=== PATIENT | female | born 1990 | race Caucasian/White ===

== ENCOUNTER 2017-03-11 20:39 | Emergency (ER) | payer MEDICAID, SELFPAY ==
[2017-03-11 20:42] VITALS: BP 141/90; PULSE 97; RESP 16; TEMP 36.6; O2SAT 98; BMI 28.3
--- NOTE | 2017-03-11 22:16 | ED.VISSUMM ---
- ER Visit Summary Date of Service: 03/11/17 Chief Complaint: [Vega to left hand] History of Present Illness: The patient is a 26 F [presents the emergency department with vega to her left hand that she incurred about an hour and a half ago. Patient states that she accidentally spilled grease from a hot skillet on her left hand. Patient is right-hand dominant. Patient unsure of her last tetanus.] Physical Examination: [Left hand-there is erythema noted to the dorsum of the left index finger, middle finger, ring finger, and small finger. There is some faint blistering noted to the dorsum of the long finger and ring finger. Patient neurovascular intact distally with normal range of motion and normal sensation.] The vega are not circumferential and only involve the dorsal aspect of the fingers. Test Results: [None indicated] Emergency Department Course and Treatment: [Patient was ordered Adacel tetanus booster however patient is refusing. Patient was given Melissa for pain and the vega were dressed with bacitracin and nonadherent dressing.] Treatment Plan: [Patient to follow-up with her primary care physician 3-5 days. Patient given a prescription for Melissa for pain.] Disposition: [Discharged to home in stable condition. Patient advised to return if increasing pain, redness, swelling, or condition should worsen in any way.] Impression: [First and second-degree vega left hand involving the index, long, ring, and small fingers.] This note was generated with [employer] dictation software. It may contain incorrect words, spelling, and punctuation that were not noted in review of the chart prior to signing ED Disposition - Plan for ED Patient: Chief Complaint: Burn Referrals: Maurilio Castrejon MD [Primary Care Provider] -
--- NOTE | 2017-03-11 22:18 | ED.DEP ---
ED Disposition - Plan for ED Patient: Chief Complaint: Burn Instructions: ED Burn Thermal D 1st 2nd Dressing Prescriptions: Hydrocodone Bitart/Apap 5-325 [[place] 5/325] 1 - 2 tab PO Q4H PRN PRN #20 tab PRN Reason: Pain Referrals: Maurilio Castrejon MD [Primary Care Provider] - 3-5 Days
[2017-03-11] MEDS: HYDROcodone Bitartrate/Apap 5/325 Tablet PO ×2 (22:33→22:35)
[2017-03-11 22:39] VITALS: BP 138/82; PULSE 74; RESP 16; O2SAT 97
== END 2017-03-11 22:41 | disposition home or self-care (01) ==
PROVIDERS: Emergency Provider Emergency Medicine; Family Provider Family Medicine; PCP Family Medicine
DX: T23.232A Burn of second degree of multiple left fingers (nail), not including thumb, initial encounter (principal); X12.XXXA Contact with other hot fluids, initial encounter; Y93.9 Activity, unspecified; Y92.9 Unspecified place or not applicable; Z72.89 Other problems related to lifestyle; Z72.0 Tobacco use
CPT/HCPCS: 99283

== ENCOUNTER 2018-01-02 04:53 | Emergency (ER) | payer MEDICAID, SELFPAY ==
[2018-01-02 04:54] VITALS: BP 166/93; PULSE 128; RESP 20; TEMP 36.4; O2SAT 98; BMI 31.3
[2018-01-02 04:59] VITALS: O2SAT 98
[2018-01-02 05:02] VITALS: PULSE 120; RESP 18
[2018-01-02] MEDS: Ipratropium/Albuterol Sulfate 3 ML AMPUL.NEB INHALATION (05:05)
--- NOTE | 2018-01-02 05:30 | ED.DCSUM_ITS ---
- ER Visit Summary Date of Service: 01/02/18 Chief Complaint: Cough] History of Present Illness: The patient is a 27 F [presents to the emergency department complaint of a cough times 3 days. Patient states that the cough is nonproductive. Patient said subjective fever at home and she has had some sweats but no documented fever. Patient feels like her chest is tight at times. Patient denies recent travel or surgery. Patient is a smoker. Patient does not have a history of asthma. 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 Cranial nerves II through XII grossly intact. TMs clear. Mucous membranes moist. No adenopathy. Cardiovascular-regular rate and rhythm without murmur or ectopy Lungs-clear to auscultation, chest wall stable without crepitus or subcu emphysema Abdomen-normoactive bowel sounds, soft, nontender, no rebound or rigidity, no peritoneal signs. Extremities-intact ?4, normal range of motion, normal pulses, atraumatic] Test Results: [None indicated] Emergency Department Course and Treatment: [Patient given a DuoNeb aerosol and she did not feel that symptomatically she had any improvement in her symptoms.] Treatment Plan: [I suspect patient likely has a viral upper respiratory infection and will treat symptomatically with Tessalon Perles for her cough. Patient advised to follow-up with her primary care physician within next 3-5 days] Disposition: [Discharged home in stable condition] Impression: [Viral URI] This note was generated with [employer] dictation software. It may contain incorrect words, spelling, and punctuation that were not noted in review of the chart prior to signing ED Disposition - Plan for ED Patient: Chief Complaint: Cough Referrals: Maurilio Castrejon MD [Primary Care Provider] -
--- NOTE | 2018-01-02 05:30 | ED.DEP ---
ED Disposition - Plan for ED Patient: Chief Complaint: Cough Instructions: ED Upper Resp Infec No Abx Tx Prescriptions: Benzonatate [Tessalon Perle] 200 mg PO TID PRN PRN #20 cap PRN Reason: Cough Referrals: Maurilio Castrejon MD [Primary Care Provider] -
== END 2018-01-02 05:35 | disposition home or self-care (01) ==
LOC: ED 05:14
PROVIDERS: Emergency Provider Emergency Medicine; Family Provider Family Medicine; PCP Family Medicine
DX: J06.9 Acute upper respiratory infection, unspecified (principal); F90.9 Attention-deficit hyperactivity disorder, unspecified type; Z79.899 Other long term (current) drug therapy; F17.200 Nicotine dependence, unspecified, uncomplicated
CPT/HCPCS: 94640; 99282

== ENCOUNTER 2018-10-31 02:42 | Emergency (ER) | payer MEDICAID, SELFPAY ==
[2018-10-31 02:43] VITALS: BP 100/63; PULSE 84; RESP 20; TEMP 36; O2SAT 99; BMI 35.2
[2018-10-31 03:07] VITALS: BP 136/94; PULSE 94; RESP 22; O2SAT 100
--- NOTE | 2018-10-31 03:15 | ED.RN ---
PT STATES SHE DOES NOT WANT TO STAY FOR TESTING OR ADDITIONAL PROCEDURES. DR CASON AWARE AND IN ROOM TO DISCUSS W/PT AND HER MOTHER.
[2018-10-31] MEDS: 0.9% Normal Saline 1,000 ML 999 ML IV (03:17)
[2018-10-31] MEDS: Diphth,Pertuss(Acell),Tet Vac 0.5 ML Vial IM (03:40)
--- NOTE | 2018-10-31 03:43 | ED.VISSUMM ---
- ER Visit Summary Date of Service: 10/31/18 Chief Complaint: Syncope History of Present Illness: The patient is a 28 F presenting after syncopal episode. Patient states that she was feeling dizzy. She states she stood up and fell. She hit her teeth on the floor. 2 of her teeth fell out. EMS was called. Patient states that she has not eaten since earlier this afternoon. She states she feels dehydrated. She states she has passed out in the past when she is dehydrated. Denies possibility of . Denies chest pain or shortness of breath. Denies abdominal pain. Last tetanus is unknown. She complains of facial pain. Denies other injuries. Physical Examination: Vitals are stable. Patient is afebrile. Alert no acute distress. HEENT exam 2 right frontal incisors avulsed, 1 cm laceration inner upper lip. 1 cm superficial laceration to the chin. Abrasion under nose. Neck is nontender Lungs are clear and equal bilaterally. Heart is regular rate and rhythm. Abdomen is soft nontender nondistended. Extremities are unremarkable. Skin is warm and dry. No focal neurologic deficit. Remainder of exam is unremarkable. Emergency Department Course and Treatment: Initially attempted to reimplant the avulsed teeth. Patient is unable to tolerate this. She is offered pain medication. She declined pain medication and further attempts at reimplanting her teeth. The avulsed teeth are chipped. She understands her dentist will likely not be able to reimplant them tomorrow as this is time sensitive. Patient declines attempts to contact oral surgeon vice president mission integration and would like to leave the ED. She states she feels improved after IV fluids and wants no further treatment. Her mother is at bedside. She initially agreed to a CT scan of her head. She is now declining and would like to leave. She declines laceration repair, blood work, CT scan. Her mother is at bedside and will be staying with her tonight. She was given tetanus IM. Patient signed out AGAINST MEDICAL ADVICE. She understands risks including permanent loss of avulsed teeth. Advised signs and symptoms for which to return to the ED. Patient left prior to receiving discharge instructions. Disposition: Left AGAINST MEDICAL ADVICE Impression: Syncope, dental avulsion This note was generated with [employer] dictation software. It may contain incorrect words, spelling, and punctuation that were not noted in review of the chart prior to signing ED Disposition - Plan for ED Patient: Referrals: Maurilio Castrejon MD [Primary Care Provider] -
--- NOTE | 2018-10-31 03:48 | ED.RN ---
PT AGREED TO TESTING AFTER DISCUSSING W/DR CASON AND HER MOTHER. WHEN THIS RN ENTERED ROOM TO DRAW BLOOD, PT STATED SHE WAS NOT GOING TO WAIT ANY LONGER AND SHE WAS LEAVING. DR CASON REVIEWED RISKS W/PT AND HER MOTHER. AMA PAPERS PRINTED AND SIGNED.
== END 2018-10-31 03:52 | disposition left against medical advice (07) ==
LOC: ED 03:07
PROVIDERS: Emergency Provider Emergency Medicine; Family Provider Family Medicine; PCP Family Medicine
DX: R55 Syncope and collapse (principal); S02.5XXA Fracture of tooth (traumatic), initial encounter for closed fracture; S01.512A Laceration without foreign body of oral cavity, initial encounter; S01.81XA Laceration without foreign body of other part of head, initial encounter; S00.81XA Abrasion of other part of head, initial encounter; Z53.21 Procedure and treatment not carried out due to patient leaving prior to being seen by health care provider; W19.XXXA Unspecified fall, initial encounter; Y93.9 Activity, unspecified; Y92.9 Unspecified place or not applicable; F90.9 Attention-deficit hyperactivity disorder, unspecified type; Z79.899 Other long term (current) drug therapy; Z72.0 Tobacco use
CPT/HCPCS: 90715; 96360; 99284; J7030; J2405

== ENCOUNTER 2019-03-09 17:48 | Emergency (ER) | payer MEDICAID, SELFPAY ==
[2019-03-09 17:48] VITALS: BP 134/73; PULSE 104; RESP 16; TEMP 36.1; O2SAT 96; BMI 31.8
[2019-03-09 17:50] VITALS: BP 134/73; PULSE 104; RESP 16; TEMP 36.1; O2SAT 96
--- NOTE | 2019-03-09 17:56 | US_ITS ---
STUDY: ULTRASOUND RIGHT UPPER QUADRANT REASON FOR VISIT: Female, 28 years old. ] Right Upper quadrant abdominal pain TECHNIQUE: Ultrasound evaluation of the gallbladder was performed with real-time and static nath-scale imaging. TECHNICAL QUALITY: Adequate. COMPARISON: None. FINDINGS: Liver measures 14.7 cm. Pancreas normal. Right kidney is normal. Gallbladder: Normal distended gallbladder. The gallbladder wall measures 2.4 mm. There is a negative sonographic Lundy''s sign. There is no pericholecystic fluid. There are no gallstones. Common Bile Duct (C.B.D.): The common bile duct measures 3.2 mm. US/Gallbladder IMPRESSION: Normal right upper quadrant ultrasound Electronically Signed: Tray Shipman MD at 19:31 EST , Service support ,
--- NOTE | 2019-03-09 18:01 | ED.DCSUM_ITS ---
History of Present Illness Chief Complaint: Abd Pain Informant: Patient Onset: Weeks Context: Gradual Onset Timing: Intermittent Current Severity: Moderate Maximum Severity: Moderate Narrative: Patient is an otherwise healthy 28-year-old female with history of prior C- section who presents to the emergency department with right upper quadrant pain intermittently for the past month. He states usually eats, she will get the pain. She describes it as sharp stabbing that radiates to her back. She will get nauseated and she had 2 episodes of vomiting. She states that she also noticed that her bowel movements have been more irregular. She is unsure if she is had fever. She does state that the salad that does seem to make her pain worse. She is otherwise been in her normal state of health. Prior similar symptoms: No Recent Illness/Hospitalization: No Past Medical History - Allergies and Home Meds Allergies/Adverse Reactions: Allergies bupropion [From Wellbutrin] Allergy (Verified 03/09/19 17:51) Other ragweed pollen Allergy (Verified 03/09/19 17:51) Itching Primary Care Physician: Maurilio Castrejon MD [Primary Care Provider] - Prior records reviewed: Yes Past Medical History: None Surgical History: - - Smoking Status: Former smoker Review of Systems General: Denies: Chills, Fever, Sweats Eyes: Denies: Visual changes - bilaterally, Diplopia ENT: Denies: Rhinorrhea, Sore throat Cardiovascular: Denies: Chest pain, Palpitations Respiratory: Denies: Dyspnea, Cough, Dyspnea on exertion Gastrointestinal: Reports: Abdominal pain, Nausea. Denies: Vomiting, Diarrhea, Melena, Hematochezia Genitourinary: Denies: Dysuria, Hematuria, Frequency Musculoskeletal: Denies: Back pain, Extremity Pain Skin: Denies: Rash, Wounds Neurological: Denies: Headache, Weakness, Numbness Physical Exam Vital Signs/Narrative: Vital Signs Temp Pulse Resp BP Pulse Ox 03/09/19 17:50 97 F L 104 H 16 134/73 H 96 03/09/19 17:48 97 F L 104 H 16 134/73 H 96 Inital Vital Signs reviewed: Yes General: Well nourished, Well developed, No Acute Distress Head: Normocephalic, Atraumatic Eyes: Perrl, EOMI ENT: Moist mucous membranes, No rhinorrhea Neck: Supple, Nontender Cardiovascular: Regular rate, Regular rhythm, No murmurs Respiratory: No distress, CTA bilaterally, Chest nontender Abdomen: Soft, Nontender, Nondistended, Normal bowel sounds Back: Nontender, Normal Inspection Extremities: Nontender, No edema Skin: Normal color, No rash Neurological: Alert, Oriented x3, Cranial nerves II-XII grossly intact, Normal Strength, Normal Sensation Psychological: Normal affect, Normal Mood Diagnostic/Tx/Re-eval Clinical Impression(s) from Imaging Studies Gallbladder Ultrasound 03/09/19 17:56 IMPRESSION: Normal right upper quadrant ultrasound Electronically Signed: Tray Shipman MD at 19:31 EST , Service support , Abnormal Lab Results 03/09/19 03/09/19 03/09/19 18:17 18:17 18:50 WBC 6.6 RBC 4.78 Hgb 14.9 Hct 44.8 MCV 93.7 MCH 31.2 MCHC 33.3 RDW Std Deviation 43.6 RDW Coeff of Pablo 12.7 Plt Count 235 MPV 9.3 Immature Gran % (Auto) 0.600 Neut % (Auto) 66.6 Lymph % (Auto) 26.1 [place] % (Auto) 5.2 Eos % (Auto) 1.2 Baso % (Auto) 0.3 Absolute Neuts (auto) 4.4 Absolute Lymphs (auto) 1.71 Nucleated RBC % 0 Sodium Potassium Chloride Carbon Dioxide Anion Gap BUN Creatinine Estim Creat Clear Calc Est GFR (MDRD) Af Amer Est GFR (MDRD) Non-Af BUN/Creatinine Ratio Glucose Calcium Total Bilirubin Direct Bilirubin AST ALT Alkaline Phosphatase Total Protein Albumin Globulin Lipase Urine Color Yellow Urine Clarity Clear Urine pH 6.0 Ur Specific [place] 1.010 Urine Protein Negative Urine Glucose (UA) Normal Urine Ketones Negative Urine Occult Blood Negative Urine Nitrite Negative Urine Bilirubin Negative Urine Urobilinogen Normal Ur Leukocyte Esterase Negative Urine RBC 0 SEEN Urine WBC 0 SEEN Ur Squamous Epith Cells 0-5 SEEN Urine Bacteria 0 SEEN Urine Mucus 0 SEEN Urine Test Negative 03/09/19 18:50 WBC RBC Hgb Hct MCV MCH MCHC RDW Std Deviation RDW Coeff of [place] Plt Count MPV Immature Gran % (Auto) Neut % (Auto) Lymph % (Auto) [place] % (Auto) Eos % (Auto) Baso % (Auto) Absolute Neuts (auto) Absolute Lymphs (auto) Nucleated RBC % Sodium 138 Potassium 3.7 Chloride 108 H Carbon Dioxide 23.0 Anion Gap 7 BUN 11 Creatinine 0.95 Estim Creat Clear Calc 74.23 Est GFR (MDRD) Af Amer 91 Est GFR (MDRD) Non-Af 75 BUN/Creatinine Ratio 11.5 Glucose 89 Calcium 9.3 Total Bilirubin 0.80 Direct Bilirubin 0.13 AST 16 ALT 37 Alkaline Phosphatase 73 Total Protein 7.7 Albumin 4.4 Globulin 3.3 Lipase 89 Urine Color Urine Clarity Urine pH Ur Specific [place] Urine Protein Urine Glucose (UA) Urine Ketones Urine Occult Blood Urine Nitrite Urine Bilirubin Urine Urobilinogen Ur Leukocyte Esterase Urine RBC Urine WBC Ur Squamous Epith Cells Urine Bacteria Urine Mucus Urine Test - Medical Decision Making The patient presents with intermittent right upper quadrant pain for the past month associated with eating, nausea, and vomiting. Metabolic work-up was pursued. IV was established. Screening labs obtained were unremarkable. Urine shows no infection. The patient not . Liver functions were normal. Patient underwent ultrasound which shows a normal gallbladder. With Zofran and Toradol, her symptoms had resolved. I do suspect that there still may be a component of biliary colic or biliary dyskinesia. I am going to give her outpatient referral to surgery. She is comfortable this plan of care and will discharged home. Impression 1. Biliary colic ED Disposition - Plan for ED Patient: Instructions: BILIARY COLIC with Gallstone (Presumed) Prescriptions: Naproxen [Naprosyn] 500 mg PO BID PRN #20 tab Prescription Printed Ondansetron [Zofran Odt] 4 mg PO Q8H PRN PRN #10 tab PRN Reason: Nausea Prescription Printed Referrals: Rg Alcaraz MD [STAFF PHYSICIAN] -
[2019-03-09 18:42] LABS: Bacteria 0 SEEN /hpf (None Seen); Mucous, Urine 0 SEEN /hpf (<or=2+); Red Blood Cells-Urine 0 SEEN /hpf (0-5); White Blood Cells 0 SEEN /hpf (0-5)
[2019-03-09 18:45] LABS: Color, Urine Yellow (Yellow); Glucose, Dipstick Normal (Normal); Ketone-Dipstick Negative (Negative); Leukocyte Esterase-Dipstick Negative /ul (Negative); Nitrite-Dipstick Negative (Negative); Occult Blood-Urine Negative /ul (Negative); Protein-Dipstick Negative (Negative); Urine Bilirubin Dipstick Negative (Negative); Urine Clarity Clear (Clear); Urine Urobilinogen Normal (Normal)
[2019-03-09 18:48] LABS: Internal QC Validated? YES +Cl - CLEAR BKGD; Pregnancy, Urine Negative Negative
[2019-03-09 18:50] VITALS: TEMP 36.6
[2019-03-09 18:51] LABS: Squamous Epithelial Cells - UA 0-5 SEEN /hpf (5-10)
[2019-03-09] MEDS: 0.9% Normal Saline 1,000 ML 1000 ML IV (18:53)
[2019-03-09] MEDS: Ondansetron 4 MG/2 ML Vial IV (18:53)
[2019-03-09] MEDS: Ketorolac 30 MG/ML Syringe IV (18:53)
[2019-03-09 19:00] VITALS: TEMP 36.8
[2019-03-09 19:12] LABS: Absolute Lymphocyte Count 1.71 X10^3/uL (0.83-4.51); Absolute Neutrophil Count 4.4 X10^3/uL (2.0-7.7); Basophil# 0.02 X10^3/uL; Basophil% 0.3 % (0-1); Eosinophil# 0.08 X10^3/uL; Eosinophils% 1.2 % (0-5); Hematocrit 44.8 % (37-47); Hemoglobin 14.9 g/dL (12.0-15.0); Lymphocyte # 1.71 X10^3/ul (4.0); Lymphocyte % 26.1 % (19-41); Mean Corp Hgb Conc 33.3 g/dL (32-36); Mean Corpuscular Hgb 31.2 pg (27.0-32.0); Mean Corpuscular Volume 93.7 fL (81-99); Mean Platelet Vol. 9.3 fl (6.2-12.0); Monocyte# 0.34 X10^3/uL; Monocyte% 5.2 % (0-10); NRBC Flagged by Analyzer 0 % (0-5); Neutrophil # 4.37 X10^3/uL (2.7-7.7); Neutrophil % 66.6 % (47-70); Platelet Count 235 K/mm3 (150-450); RBC Distribution Width CV 12.7 % (11.6-14.6); RBC Distribution Width SD 43.6 fl (35.1-43.9); Red Blood Count 4.78 M/mm3 (4.2-5.4); White Blood Count 6.6 K/mm3 (4.4-11.0)
[2019-03-09 19:45] LABS: AST(SGOT) 16 U/L (15-37); Alanine Aminotransfer ALT/SGPT 37 U/L (13-56); Albumin, Serum 4.4 g/dL (3.2-5.0); Alkaline Phosphatase 73 U/L (45-117); Anion Gap 7 (5-15); BUN 11 mg/dL (7-18); BUN/Creat Ratio 11.5 RATIO (10-20); Bilirubin, Direct 0.13 mg/dL (0.00-0.30); Calcium,Total 9.3 mg/dL (8.5-10.1); Chloride 108 mmol/L (98-107); Creatinine, Serum 0.95 mg/dL (0.55-1.02); EST Glomerular Filtration Rate 75 mL/min (>60); Est Glom Filt Rate - Afr Amer 91 mL/min (>60); Estimated Creatinine Clearance 74.23 ml/min; Globulin 3.3 g/dL (2.2-4.2); Glucose 89 mg/dL (74-106); Lipase 89 U/L (73-393); Potassium 3.7 mmol/L (3.5-5.1); Protein, Total 7.7 g/dL (6.4-8.2); Sodium Level 138 mmol/L (136-145)
[2019-03-09 19:54] VITALS: BP 132/76; PULSE 78; RESP 17; O2SAT 98
== END 2019-03-09 19:55 | disposition home or self-care (01) ==
LOC: ED 18:08
PROVIDERS: Emergency Provider Emergency Medicine; PCP Family Medicine
DX: K80.50 Calculus of bile duct without cholangitis or cholecystitis without obstruction (principal); Z87.891 Personal history of nicotine dependence
CPT/HCPCS: 76705; 80048; 80076; 81001; 81025; 83690; 85025; 96361; 96374; 96375; 99285; J7030; A4216; J2405

== ENCOUNTER 2019-03-28 16:20 | Emergency (ER) | payer MEDICAID, SELFPAY ==
[2019-03-28 16:21] VITALS: BP 133/93; PULSE 97; RESP 16; TEMP 36.9; O2SAT 96; BMI 30.1
[2019-03-28] MEDS: Ondansetron ODT 4 MG Tablet PO (16:41)
--- NOTE | 2019-03-28 16:41 | RAD_ITS ---
STUDY: X-RAY CHEST REASON FOR EXAM: Female, 28 years old. COUGH TECHNIQUE: PA and lateral COMPARISON: July 21, 2016 FINDINGS: The lungs are clear and expanded. There is no demonstrated pleural abnormality. Normal size heart. Normal mediastinum and sindy. Normal visualized pulmonary arteries. Normal visualized aortic arch and descending thoracic aorta. Normal visualized thoracic spine. Normal visualized ribs, clavicles, and shoulders. There is no demonstrated abnormality of the visualized soft tissue structures of the upper abdomen. RAD/Chest PA and Lateral IMPRESSION: Normal x-ray examination of the chest. Electronically Signed: Maurilio Salvador MD at 17:12 EST , Service support ,
[2019-03-28 16:55] LABS: Bacteria 0 SEEN /hpf (None Seen); Mucous, Urine 0 SEEN /hpf (<or=2+); Red Blood Cells-Urine 0 SEEN /hpf (0-5); White Blood Cells 0 SEEN /hpf (0-5)
[2019-03-28 16:57] LABS: Color, Urine Yellow (Yellow); Glucose, Dipstick Normal (Normal); Ketone-Dipstick Negative (Negative); Leukocyte Esterase-Dipstick Negative /ul (Negative); Nitrite-Dipstick Negative (Negative); Occult Blood-Urine Negative /ul (Negative); Protein-Dipstick Negative (Negative); Specific Gravity, Urine 1.005 (1.002-1.030); Urine Bilirubin Dipstick Negative (Negative); Urine Clarity Sl. Cloudy (Clear); Urine Urobilinogen Normal (Normal)
[2019-03-28 16:59] LABS: Internal QC Validated? YES +Cl - CLEAR BKGD; Pregnancy, Urine Negative Negative
[2019-03-28 17:05] LABS: Squamous Epithelial Cells - UA 0-5 SEEN /hpf (5-10)
[2019-03-28 17:07] VITALS: RESP 18
--- NOTE | 2019-03-28 17:25 | ED.VIS.URI ---
History of Present Illness Informant: Patient, Significant Other Onset: Yesterday Context: Gradual Onset Timing: Continuous Quality: aching Location: myalgias Current Severity: Moderate Maximum Severity: Severe Worsened by: - - movement Relieved by: Tylenol Associated Symptoms: Nasal Congestion, Myalgias, Nausea, Diarrhea, Productive Cough Narrative: 28-year-old female presents with productive cough, sore throat and congestion, nausea and myalgias as well as several episodes of diarrhea with loose stool. Patient has not had a fever. No vomiting. No chest pain or shortness of breath. No hemoptysis. No headache or neck pain. She is not lightheaded or dizzy. No urinary symptoms no abdominal pain no vaginal bleeding or discharge. Her son was diagnosed with pneumonia this week and her daughter with influenza. Prior similar symptoms: Yes Recent Illness/Hospitalization: No <Alfonso Hernandez - Last Filed: 03/28/19 17:25> <Holger Gastelum - Last Filed: 03/28/19 21:50> Chief Complaint: General Illness Past Medical History Prior records reviewed: Yes Past Medical History: None Surgical History: - - Lives: With Family Smoking Status: Never smoker Alcohol: Occasional Drugs: None <Alfonso Hernandez - Last Filed: 03/28/19 17:25> <Holger Gastelum - Last Filed: 03/28/19 21:50> - Allergies and Home Meds Allergies/Adverse Reactions: Allergies bupropion [From Wellbutrin] Allergy (Verified 03/28/19 16:21) Other ragweed pollen Allergy (Verified 03/28/19 16:21) Itching Primary Care Physician: Maurilio Castrejon MD [Primary Care Provider] - 3-5 Days if not improving Review of Systems All systems negative except as indicated General: Reports: Malaise. Denies: Chills, Fever, Subjective, Sweats, Weight loss Eyes: Denies: Visual changes - bilaterally, Blurred Vision - bilaterally, Diplopia ENT: Reports: Sore throat. Denies: Bilateral ear pain, Rhinorrhea Cardiovascular: Denies: Chest pain, Palpitations, Heart racing Respiratory: Reports: Cough, Sputum. Denies: Dyspnea, Dyspnea on exertion, Orthopnea, Paroxysmal nocturnal dyspnea Gastrointestinal: Reports: Nausea. Denies: Abdominal pain, Vomiting, Diarrhea, Constipation, Melena, Hematochezia Genitourinary: Denies: Dysuria, Hematuria, Frequency Musculoskeletal: Reports: Myalgias. Denies: Arthralgias, Neck pain, Back pain, Swelling, Extremity Pain Skin: Denies: Rash, Abscess, Abrasions, Wounds Neurological: Denies: Headache, Weakness, Parasthesia Hematologic: Denies: Easy bruising, Easy bleeding <Alfonso Hernandez - Last Filed: 03/28/19 17:25> Physical Exam Vital Signs/Narrative: Vital Signs Temp Pulse Resp BP Pulse Ox 03/28/19 17:07 18 03/28/19 16:21 98.4 F 97 16 133/93 H 96 Inital Vital Signs reviewed: Yes General: Well nourished, Well developed Head: Normocephalic, Atraumatic Eyes: Perrl, EOMI Ears: Normal external canal, TM's clear. Negative for: Pain with Movement of Right Tragus, Pain with Movement of Left Tragus, Right Mastoid Tenderness, Left Mastoid Tenderness Nose: Congestion. Negative for: Erythema, Swollen Turbinates Mouth/Throat: Airway Patent, Posterior Oropharyngeal Erythema Tonsils: Right Tonsilar Erythema, Left Tonsilar Erythema. Negative for: Right Tonsilar Exudates, Left Tonsilar Exudates, Right Tonsilar Swelling, Left Tonsilar Swelling Neck: Supple, Nontender, No Lymphadenopathy, No Meningismus Cardiovascular: Regular rate, Regular rhythm, No murmurs Respiratory: No distress, CTA bilaterally, Chest nontender Abdomen: Soft, Nontender, Nondistended, Normal bowel sounds, No masses Back: Nontender, Normal Inspection. Negative for: CVA tenderness, Spinal tenderness Extremities: Nontender, No edema Skin: Normal color, No rash Neurological: Alert, Oriented x3, Normal Gait Psychological: Normal affect <Alfonso Hernandez - Last Filed: 03/28/19 17:25> Diagnostic/Tx/Re-eval Chest X-Ray - ED: 2 View, Read by ED Physician, Read by Radiologist, No Acute Disease - Medical Decision Making Patient was treated with Zofran. She declined Toradol. She has taken Tylenol about 2 hours prior to arrival. Patient's influenza testing is negative. Urinalysis is also negative as was . 2 view chest x-ray is unremarkable. Repeat evaluation, repeat abdominal exam soft and nontender and at this time the patient is tolerating by mouth. Patient was reassured that she does not have any clinical signs of dehydration that would require IV fluids. Is likely viral syndrome. She declined a prescription for Tessalon Perles but I will prescribe her Zofran. She states that she has both ibuprofen and Tylenol to take at home as needed. She was encouraged to follow-up with her primary care physician or return back to the emergency department for worsening symptoms which were discussed. <Alfonso Hernandez - Last Filed: 03/28/19 17:25> - Medical Decision Making Patient was seen by me I evaluated her, she appears well she has clear lungs bilaterally she has slight congestion. She has a normal work-up and I will discharge her in stable condition <Holger Gastelum - Last Filed: 03/28/19 21:50> ED Disposition <Alfonso Hernandez - Last Filed: 03/28/19 17:25> <Holger Gastelum - Last Filed: 03/28/19 21:50> - Plan for ED Patient: Disposition: Home or Assisted Living Diagnosis: Viral syndrome Instructions: VIRAL SYNDROME (Adult) Prescriptions: Ondansetron [Zofran Odt] 4 mg PO Q8H PRN PRN #10 tab PRN Reason: Nausea Prescription Printed Referrals: Maurilio Castrejon MD [Primary Care Provider] - 3-5 Days if not improving
[2019-03-28 17:35] VITALS: RESP 18; O2SAT 98
== END 2019-03-28 17:36 | disposition home or self-care (01) ==
PROVIDERS: Emergency Provider Physician Assistant Medical; PCP Family Medicine
DX: B34.9 Viral infection, unspecified (principal); R05 Cough; J02.9 Acute pharyngitis, unspecified; R09.81 Nasal congestion; R11.0 Nausea; M79.10 Myalgia, unspecified site; R19.7 Diarrhea, unspecified
CPT/HCPCS: 71046; 81001; 81025; 87804; 99283

== ENCOUNTER 2021-08-07 15:42 | Emergency (ER) | payer MEDICAID, SELFPAY ==
[2021-08-07 15:44] VITALS: BP 145/94; PULSE 102; RESP 18; TEMP 36.9; O2SAT 95; BMI 31.6
--- NOTE | 2021-08-07 16:35 | ED.RN ---
had pt. get in gown. pt. walks out of department without being seen. aware
== END 2021-08-07 16:34 | disposition home or self-care (01) ==
LOC: ED 16:39
PROVIDERS: PCP Internal Medicine
DX: Z53.21 Procedure and treatment not carried out due to patient leaving prior to being seen by health care provider (principal)

== ENCOUNTER 2021-11-04 21:01 | Emergency (ER) | payer MEDICAID, SELFPAY ==
[2021-11-04 21:02] VITALS: BP 144/93; PULSE 113; RESP 17; TEMP 36.6; O2SAT 96; BMI 31.8
--- NOTE | 2021-11-04 21:35 | EDS_ITS ---
HPI History of Present Illness Chief Complaint: General Illness Informant: patient Onset/Context/Timing Onset: Weeks Context: Gradual Onset Timing: Intermittent Current Severity: Mild Maximum Severity: Mild Narrative Narrative: 31-year-old female past medical history of ADHD. Prior and tonsillectomy. States that she was seen her primary care physician about 10 days ago had a negative urinalysis at that time. Said for the last 2 weeks she has had suprapubic abdominal discomfort and dysuria. Denies any vaginal bleeding or vaginal discharge. Said her last several days she has developed nausea without vomiting and loose stools. And today had she had a fever of 101.9. No history of recent urinary tract infections. Prior similar symptoms: No Recent Illness/Hospitalization: No PFSH PFSH Medical History ADHD (attention deficit hyperactivity disorder) Home Medications methylphenidate HCl 20 mg tablet 20 mg PO DAILY 11/04/21 [History Last Taken Unknown] Allergy/AdvReac Type Severity Reaction Status Date / Time bupropion [From Wellbutrin] Allergy Other Verified 11/04/21 21:05 ragweed pollen Allergy Itching Verified 11/04/21 21:05 Social History Smoking Status: Never smoker ROS ROS ED ROS Narrative Lower abdominal pain. Nausea and fever. Loose stools. No dysuria. Review of Systems ROS Unobtainable: due to encephalopathy Constitutional Constitutional ED: Reports fever(s); Denies chills Eyes Eyes: Denies blurry vision ENT ENT ED: Denies ear pain Cardiovascular Cardiovascular: Denies chest pain Respiratory/Chest Respiratory/Chest: Denies cough or dyspnea Gastrointestinal Gastrointestinal: Reports abdominal pain, diarrhea and nausea; Denies constip ation, melena or vomiting Genitourinary Genitourinary ED: Reports dysuria; Denies hematuria Musculoskeletal Musculoskeletal: Denies arthralgias Integumentary Denies abscess Neurologic Neurologic: Denies headache(s) Psychiatric Psychiatric: Denies anxiety Endocrine Endocrinology: Denies cold intolerance Hematologic/Lymphatic Hematologic/Lymphatic: Reports none Allergic/Immunologic Allergic/Immunologic ED: Denies mouth swelling or tongue swelling EXAM Physical Exam Narrative Exam Narrative: 31-year-old female no acute distress. Vital signs stable afebrile. H EENT exam unremarkable. Neck nontender. Lungs clear to auscultation. Heart regular rhythm rate about 110 no murmur. Abdomen soft nondistended normal bowel sounds no peritoneal signs. Really no significant tenderness whatsoever. Right upper and right lower quadrant are unremarkable. With no McBurney's point tenderness. No Lundy sign. Back nontender. Moving all 4 extremities. Neurologically she is awake and alert. Very benign exam. Clinically looks well. Const Vital Signs: 11/04/21 21:02 Temperature 97.9 F Temperature Source Temporal Pulse Rate 113 H Respiratory Rate 17 Blood Pressure 144/93 H Blood Pressure Mean 110 Pulse Ox 96 Oxygen Delivery Method Room Air Positive well nourished and well developed; Negative for cachectic, contractures or unkempt General Appearance ED: well developed and NAD; Negative for unkempt, cachectic, contractures, cyanotic or diaphoretic Nutritional Appearance: Negative for cachectic HEENT Reports moist mucous membranes; Denies dry mucous membranes Negative for trauma or tenderness Mouth ED: No dry mucous membranes Mouth: No dry mucous membranes Eyes PERRL and EOMs intact bilaterally General Eye ED: Negative for pale conjunctiva or scleral icterus Neck no lymphadenopathy, supple and no JVD Chest Wall inspection of chest normal and palpation of chest normal Chest: Negative for other Resp normal respiratory effort and clear to auscultation bilaterally Effort and Inspection: Negative for retractions Auscultation: Negative for rales, rhonchi or wheezes Cardio regular rhythm, S1 normal heart sound, S2 normal heart sound and no murmurs; Negative for regular rate Rate: tachycardic GI normal to inspection, nondistended, normoactive bowel sounds, non-tender, non- distended and no masses Inspection: Negative for abdominal distention Auscultation: normoactive bowel sounds Palpation: soft; Negative for tender, guarding or mass Back/Spine no CVA tenderness General Back: Negative for CVA tenderness Cervical Spine: Negative for cervical spine tenderness Thoracic Spine / Upper Back: Negative for thoracic spinal tenderness or paraspinal muscle tenderness Lumbar Spine / Lower Back: Negative for lumbar spinal tenderness Extremity normal to inspection General Extremety ED: Negative for edema or tenderness General Extremity: Negative for edema Neuro oriented x3 and CN's II-XII intact bilaterally Sensorium / Orientation: alert; Negative for orientation impaired, lethargic or stuporous Motor Exam: strength 5/5 throughout Psych mental status grossly normal Appearance: Negative for unkempt Attitude: No agitated Mood & Affect: Negative for depressed, anxious or tearful Skin no rashes or lesions noted General Skin Exam: Negative for elasticity normal Lesions: No lesion noted Rashes: No rashes noted Trauma: Negative for abrasion Wounds: Negative for wounds noted MDM MDM MDM Narrative Medical decision making narrative: 31-year-old female with lower abdominal discomfort. Benign exam. Screening labs and UA be obtained along with a test. At this time I do not think she needs any imaging obviously if the labs are significant abnormal that may change. Repeat exam patient doing well at 10:40 PM. We went over her test results is really nothing pointing in a specific diagnosis. Her urine is negative. is negative. She has discussed outpatient follow-up versus a CT of her abdomen pelvis with contrast she chose to go that route its been ordered and I am awaiting for that to be done. Her abdomen is currently benign. Patient doing well at 11:45 PM. She will be discharged home. I discussed all test results with her. Follow-up with your doctor. Lab Data Attestation: I reviewed the patient's lab results. Lab results narrative: CBC shows a white count 12.2 H&H 14 and 42. Electrolytes show a gap of 9 normal BUN and creatinine is 7 and 0.8. test negative. Urinalysis negative. No white or red cells. No nitrates. CAT scan abdomen pelvis is read by the radiologist reviewed by me shows some mild colitis. No diverticulitis. No appendicitis. No gynecologic pathology. Labs: Laboratory Results - last 24 hr 11/04/21 11/04/21 11/04/21 21:44 21:44 21:44 WBC 12.2 H RBC 4.50 Hgb 14.3 Hct 42.5 MCV 94.4 MCH 31.8 MCHC 33.6 RDW Std Deviation 43.7 RDW Coeff of Pablo 12.5 Plt Count 184 MPV 9.0 Immature Gran % (Auto) 0.500 Neut % (Auto) 88.6 H Lymph % (Auto) 7.4 L [place] % (Auto) 3.2 Eos % (Auto) 0.1 Baso % (Auto) 0.2 Absolute Neuts (auto) 10.8 H Absolute Lymphs (auto) 0.90 Nucleated RBC % 0 Sodium 138 Potassium 3.9 Chloride 105 Carbon Dioxide 24.0 Anion Gap 9 BUN 7 Creatinine 0.87 Estim Creat Clear Calc 78.93 Est GFR (MDRD) Af Amer 99 Est GFR (MDRD) Non-Af 82 BUN/Creatinine Ratio 8.1 L Glucose 107 H Calcium 9.8 Serum , Qual NEGATIVE Urine Color Urine Clarity Urine pH Ur Specific [place] Urine Protein Urine Glucose (UA) Urine Ketones Urine Occult Blood Urine Nitrite Urine Bilirubin Urine Urobilinogen Ur Leukocyte Esterase Urine RBC Urine WBC Ur Squamous Epith Cells Urine Bacteria Urine Mucus 11/04/21 21:44 WBC RBC Hgb Hct MCV MCH MCHC RDW Std Deviation RDW Coeff of [place] Plt Count MPV Immature Gran % (Auto) Neut % (Auto) Lymph % (Auto) [place] % (Auto) Eos % (Auto) Baso % (Auto) Absolute Neuts (auto) Absolute Lymphs (auto) Nucleated RBC % Sodium Potassium Chloride Carbon Dioxide Anion Gap BUN Creatinine Estim Creat Clear Calc Est GFR (MDRD) Af Amer Est GFR (MDRD) Non-Af BUN/Creatinine Ratio Glucose Calcium Serum , Qual Urine Color Straw Urine Clarity Clear Urine pH 7.0 Ur Specific [place] 1.005 Urine Protein Negative Urine Glucose (UA) Normal Urine Ketones Negative Urine Occult Blood 10 H Urine Nitrite Negative Urine Bilirubin Negative Urine Urobilinogen Normal Ur Leukocyte Esterase Negative Urine RBC 0 SEEN Urine WBC 0 SEEN Ur Squamous Epith Cells 0-5 SEEN Urine Bacteria 1+ Urine Mucus 0 SEEN Radiography Diagnostic Testing: Clinical Impression(s) from Imaging Studies Abdomen/Pelvis CT 11/04/21 22:42 IMPRESSION: 1. Mild colitis of the cecum and ascending colon. 2. No appendicitis, diverticulitis or intestinal obstruction. 3. Normal kidneys without obstructive uropathy or pyelonephritis. 4. No cholelithiasis, cholecystitis or pancreatitis. 5. Normal anteverted uterus and no ovarian cystic or solid mass lesions. Electronically Signed: Natanael Dupont MD at 23:27 EDT , Discharge Plan Triage Chief Complaint: General Illness ED Provider: Garrett Greenwood Dx/Rx/DC Orders Clinical Impression: Abdominal pain, Colitis Instructions: Abdominal Pain, ED Understanding Colitis Prescriptions: No Action methylphenidate HCl 20 mg tablet 20 mg PO DAILY Label Comments: TAKE 1 TABLET BY MOUTH TWICE DAILY FOR 30 DAYS Primary Care Provider: Mary Macdonald Referrals: Mary Macdonald MD [Primary Care Provider] - 1 Week if not improving Activity Restrictions/Additional Instructions: Your labs are unremarkable. The CAT scan showed mild inflammation of your colon that should improve. Motrin and Tylenol for pain. Follow-up with your doctor if not improving for further evaluation. Disposition Disposition: Home, Self Care
[2021-11-04 21:50] LABS: Mucous, Urine 0 SEEN /hpf (<or=2+); Red Blood Cells-Urine 0 SEEN /hpf (0-5); White Blood Cells 0 SEEN /hpf (0-5)
[2021-11-04 21:53] LABS: Absolute Neutrophil Count 10.8 X10^3/uL (2.0-7.7); Basophil# 0.03 X10^3/uL; Basophil% 0.2 % (0-1); Eosinophil# 0.01 X10^3/uL; Eosinophils% 0.1 % (0-5); Hematocrit 42.5 % (37-47); Hemoglobin 14.3 g/dL (12.0-15.0); Lymphocyte % 7.4 % (19-41); Mean Corp Hgb Conc 33.6 g/dL (32-36); Mean Corpuscular Hgb 31.8 pg (27.0-32.0); Mean Corpuscular Volume 94.4 fL (81-99); Monocyte# 0.39 X10^3/uL; Monocyte% 3.2 % (0-10); NRBC Flagged by Analyzer 0 % (0-5); Neutrophil # 10.81 X10^3/uL (2.7-7.7); Neutrophil % 88.6 % (47-70); Platelet Count 184 K/mm3 (150-450); RBC Distribution Width CV 12.5 % (11.6-14.6); RBC Distribution Width SD 43.7 fl (35.1-43.9); White Blood Count 12.2 K/mm3 (4.4-11.0)
[2021-11-04 21:57] LABS: Color, Urine Straw (Yellow); Glucose, Dipstick Normal (Normal); Ketone-Dipstick Negative (Negative); Leukocyte Esterase-Dipstick Negative /ul (Negative); Nitrite-Dipstick Negative (Negative); Occult Blood-Urine 10 /ul (Negative); Protein-Dipstick Negative (Negative); Specific Gravity, Urine 1.005 (1.002-1.030); Urine Bilirubin Dipstick Negative (Negative); Urine Clarity Clear (Clear); Urine Urobilinogen Normal (Normal)
[2021-11-04 22:12] LABS: Anion Gap 9 (5-15); BUN 7 mg/dL (7-18); BUN/Creat Ratio 8.1 RATIO (10-20); Calcium,Total 9.8 mg/dL (8.5-10.1); Chloride 105 mmol/L (98-107); Creatinine, Serum 0.87 mg/dL (0.55-1.02); EST Glomerular Filtration Rate 82 mL/min (>60); Est Glom Filt Rate - Afr Amer 99 mL/min (>60); Estimated Creatinine Clearance 78.93 ml/min; Glucose 107 mg/dL (74-106); Potassium 3.9 mmol/L (3.5-5.1); Sodium Level 138 mmol/L (136-145)
[2021-11-04 22:14] LABS: Bacteria 1+ /hpf (None Seen); Squamous Epithelial Cells - UA 0-5 SEEN /hpf (5-10)
[2021-11-04 22:15] LABS: Internal QC Validated? YES +Cl - CLEAR BKGD; Pregnancy, Serum, hCG Quali. NEGATIVE Negative
[2021-11-04] MEDS: Ondansetron 4 MG/2 ML Vial IV (22:15)
--- NOTE | 2021-11-04 22:42 | CT_ITS ---
STUDY: CT ABDOMEN AND PELVIS WITH CONTRAST ENHANCEMENT OF 2257 HOURS AND 11/04/2021 REASON FOR EXAM: 31-year-old female with lower abdominal pain. RADIATION DOSAGE (If Supplied By Facility): CTDIvol = ( 20.54 ) mGy, DLP = ( 1131.01 ) mGycm. TECHNIQUE: Transaxial images were obtained from the dome of the diaphragm to the symphysis pubis without oral contrast. 100mL of Isovue-370 was administered intravenously for this examination.. Sagittal and coronal images were reconstructed. Individualized dose optimization techniques were used for this CT. COMPARISON: 10/28/2016. FINDINGS: The visualized lung bases are unremarkable. The visualized portions of the heart are within normal limits. Normal liver. Normal gallbladder and extrahepatic biliary system. No cholelithiasis or cholecystitis. Normal spleen. No pancreatitis or pancreatic mass lesions. Normal pancreas. Normal bilateral adrenal glands. Normal kidneys without obstructive uropathy or pyelonephritis. Normal urinary bladder. Normal visualized stomach. Normal small intestine. There are findings of a mild colitis of the cecum and ascending colon. There is evidence of a diverticulitis or colonic obstruction. The rectum has normal appearance. Normal posterior appendix without appendicitis. The appendix is best visualized in sagittal images 65 through 71. Normal abdominal aorta. Normal inferior vena cava. Normal retroperitoneum. Anteverted uterus. No ovarian cystic or solid mass lesions. Normal abdominal wall. Normal osseous structures. CT/Abdomen/Pelvis W IV Cont ONLY IMPRESSION: 1. Mild colitis of the cecum and ascending colon. 2. No appendicitis, diverticulitis or intestinal obstruction. 3. Normal kidneys without obstructive uropathy or pyelonephritis. 4. No cholelithiasis, cholecystitis or pancreatitis. 5. Normal anteverted uterus and no ovarian cystic or solid mass lesions. Electronically Signed: Natanael Dupont MD at 23:27 EDT ,
[2021-11-04 23:56] VITALS: BP 132/70; PULSE 74; RESP 15; TEMP 36.4; O2SAT 98; O2SAT 99
== END 2021-11-04 23:57 | disposition home or self-care (01) ==
PROVIDERS: Emergency Provider Emergency Medicine; PCP Internal Medicine; Visit Provider Emergency Medicine
DX: K52.9 Noninfective gastroenteritis and colitis, unspecified (principal); F90.9 Attention-deficit hyperactivity disorder, unspecified type; Z79.899 Other long term (current) drug therapy
CPT/HCPCS: 74177; 80048; 81001; 84703; 85025; 96374; 99283; Q9967; A4216; J2405

== ENCOUNTER 2022-06-15 18:12 | Emergency (ER) | payer MEDICAID, SELFPAY ==
[2022-06-15 18:14] VITALS: BP 152/92; PULSE 120; RESP 18; TEMP 35.7; O2SAT 100; BMI 33.0
--- NOTE | 2022-06-15 18:26 | EDS_ITS ---
HPI History of Present Illness Chief Complaint: Upper Extremity Injury Informant: patient Associated Symptoms Associated Symptoms: Positive for Loss of Funtion; Negative for Parasthesia or Weakness Narrative Narrative: Patient states an hour ago or so she was at a batting cage and a baseball hit her in the left hand. Since then, she is having trouble moving her left small finger. [id number]. No other injuries. [facility] Medical History ADHD (attention deficit hyperactivity disorder) Home Medications methylphenidate HCl 20 mg tablet 20 mg PO DAILY 11/04/21 [History Last Taken Unknown] Allergy/AdvReac Type Severity Reaction Status Date / Time bupropion [From Wellbutrin] Allergy Other Verified 11/04/21 21:05 ragweed pollen Allergy Itching Verified 11/04/21 21:05 Social History Smoking Status: Never smoker ROS ROS ED Constitutional Constitutional ED: Denies chills or fever(s) Musculoskeletal Musculoskeletal: Reports extremity pain; Denies neck pain Integumentary Denies Abrasions, rash or wounds Neurologic Neurologic: Denies paresthesias or weakness EXAM Physical Exam Const Vital Signs: 06/15/22 18:14 Temperature 96.3 F L Temperature Source Temporal Pulse Rate 120 H Respiratory Rate 18 Blood Pressure 152/92 H Blood Pressure Mean 112 Pulse Ox 100 Oxygen Delivery Method Room Air Positive well nourished and well developed General Appearance ED: well developed and NAD Neck full ROM and supple Back/Spine normal ROM and normal to inspection Extremity normal to inspection Extremity Narrative: Left hand: Nontender fourth digit, which is somewhat painful to move but she has intact FDP, FDS, extensor and without any deformities or pain with stressing all of the collateral ligaments of the joints of that finger. On the fifth digit, she is very tender at the PIPJ and the MCPJ with no deformities. Extensor is intact. FDP is intact, but she is not able to move the FDS. It does not seem to be limited by pain. There is some mild swelling and bruising but no deformities. The metacarpal and wrist are otherwise nontender and the rest of the hand is unremarkable. Neuro oriented x3, no focal motor deficits and no sensory deficits noted Sensorium / Orientation: alert Psych mental status grossly normal and thought process normal Skin no wounds Rashes: no rashes MDM MDM MDM Narrative Medical decision making narrative: Three-view x-rays of the left hand were obtained and on my interpretation they are negative for any fracture or dislocation. My concern is that she could have disrupted the attachment of her left fifth digit flexor digitorum superficialis. The mechanism would make this difficult since she was struck ulnarly/dorsally, since she was holding a bat at the time, but that is how she is examining. Discussed this with Dr. Sherman, who is comfortable evaluating her in follow-up, I will place her in a finger splint for now. Procedures Upper Extremity Splints Upper Extremity Splint: Alum[place]am Splint Fabrication: Pre-fabricated Location: Left (Small finger; neurovascularly intact distally after placement.) Discharge Plan Triage Chief Complaint: Upper Extremity Injury ED Provider: Luis Stanford Dx/Rx/DC Orders Clinical Impression: Other injury of flexor muscle, fascia and tendon of left little finger at wrist and hand level, initial encounter Prescriptions: No Action methylphenidate HCl 20 mg tablet 20 mg PO DAILY Label Comments: TAKE 1 TABLET BY MOUTH TWICE DAILY FOR 30 DAYS Primary Care Provider: Mary Macdonald Referrals: Mary Macdonald MD [Primary Care Provider] - Flaco Sherman DO [Med Staff - Active Staff] - As soon as possible (call for appt) Disposition Disposition: Home, Self Care
--- NOTE | 2022-06-15 18:30 | RAD_ITS ---
STUDY: X-RAY - LEFT HAND REASON FOR EXAM: Female, 32 years old. injury - attn 4th, 5th fingers TECHNIQUE: 3 view(s) of the hand. COMPARISON: None. FINDINGS: Normal radiocarpal articulation. Normal distal radioulnar joint. Normal visualized carpal bones. Normal carpal articulations Normal carpometacarpal articulation of the thumb. Normal second through fifth carpometacarpal joints. Normal metacarpi. Normal metacarpophalangeal joint of the thumb. Normal interphalangeal joint of the thumb. Normal proximal and distal phalanges of the thumb. Normal metacarpophalangeal joints of the second through fifth fingers. Normal proximal and distal interphalangeal joints of the second through fifth fingers. Normal phalanges of the second through fifth fingers. The soft tissue structures are unremarkable. RAD/Hand Min 3 Views IMPRESSION: Normal x-ray examination of the hand. Electronically Signed: Tray Shipman MD at 18:43 EDT ,
--- NOTE | 2022-06-15 19:01 | ED.RN ---
SPLINT APPLIED PER DR RICHARDSON.
== END 2022-06-15 19:03 | disposition home or self-care (01) ==
PROVIDERS: Emergency Provider Emergency Medicine; PCP Internal Medicine; Visit Provider Emergency Medicine
DX: S66.107A Unspecified injury of flexor muscle, fascia and tendon of left little finger at wrist and hand level, initial encounter (principal); F90.9 Attention-deficit hyperactivity disorder, unspecified type; Z79.899 Other long term (current) drug therapy; W21.03XA Struck by baseball, initial encounter; Y92.89 Other specified places as the place of occurrence of the external cause
CPT/HCPCS: 73130; 99282

== ENCOUNTER 2023-03-31 03:13 | Emergency (ER) | payer MEDICAID, SELFPAY ==
[2023-03-31 03:15] VITALS: BP 146/100; PULSE 123; RESP 18; TEMP 37.1; O2SAT 98; BMI 36.5
--- NOTE | 2023-03-31 03:18 | RAD_ITS ---
EXAM: XR RIGHT FOOT COMPLETE, 3 OR MORE VIEWS CLINICAL INDICATION: injury TECHNIQUE: Frontal, lateral and oblique views of the right foot. COMPARISON: No relevant prior studies available. FINDINGS: BONES/JOINTS: Unremarkable. No acute fracture. No subluxation. Normal alignment. Preservation of the joint space. No sclerotic or destructive changes observed. SOFT TISSUES: Lateral soft tissue swelling at the ankle. No radiopaque foreign body. RAD/Foot min 3 Views IMPRESSION: Lateral soft tissue swelling at the ankle. No fractures identified involving the right foot. Electronically Signed: Jordon Stephen MD at 3:54 EST ,
--- NOTE | 2023-03-31 03:20 | RAD_ITS ---
EXAM: XR RIGHT ANKLE COMPLETE, 3 OR MORE VIEWS CLINICAL INDICATION: injury TECHNIQUE: Frontal, lateral and oblique views of the right ankle. COMPARISON: No relevant prior studies available. FINDINGS: BONES/JOINTS: Unremarkable. No acute fracture. No subluxation. Normal alignment. Preservation of the joint space. No sclerotic or destructive changes observed. SOFT TISSUES: Lateral soft tissue swelling. No radiopaque foreign body. RAD/Ankle min 3 Views IMPRESSION: Lateral soft tissue swelling. No fracture identified. Electronically Signed: Jordon Stephen MD at 3:50 EST ,
--- NOTE | 2023-03-31 03:32 | EDS_ITS ---
HPI History of Present Illness HPI Narrative: Patient presents with right ankle injury that occurred today. Patient states she missed a step and inverted her right ankle. Patient states her pain is worse with any weightbearing. Patient describes it as aching. Patient admits to some numbness and tingling into her foot. Patient denies any weakness. Patient denies any head injury or loss of consciousness. Patient denies any other injuries. Chief Complaint: Lower Extremity Injury Informant: patient Occured/Mechanism Mechanism/Context: Yes fall Onset/Context/Timing Onset: Today Context: Sudden Onset Timing: Continuous Quality of Pain: Aching Location: Right ankle Worsened by: Weightbearing and ambulation Relieved by: Nothing Associated Symptoms Associated Symptoms: Positive for Parasthesia; Negative for Weakness or Loss of Funtion PFSH PFS Medical History (Updated 03/31/23 @ 04:[address] Pierce Carrillo DO) ADHD (attention deficit hyperactivity disorder) Environmental and seasonal allergies Home Medications methylphenidate HCl 20 mg tablet 40 mg PO DAILY 11/04/21 [History Last Taken Unknown] Allergy/AdvReac Type Severity Reaction Status Date / Time bupropion [From Wellbutrin] Allergy Other Verified 03/31/23 03:14 ragweed pollen Allergy Itching Verified 03/31/23 03:14 Surgical History (Updated 03/31/23 @ 03:[address] Pierce Carrillo DO) Hx of section Hx of tonsillectomy Social History Smoking Status: Current every day smoker tobacco type: e-cigarettes ROS ROS ED Constitutional Constitutional ED: Denies chills or fever(s) Eyes Eyes: Denies blurry vision or change in vision ENT ENT ED: Denies rhinorrhea or sore throat Cardiovascular Cardiovascular: Denies chest pain or palpitations Respiratory/Chest Respiratory/Chest: Denies cough or dyspnea Gastrointestinal Gastrointestinal: Denies nausea or vomiting Genitourinary Genitourinary ED: Denies dysuria or hematuria Musculoskeletal Musculoskeletal: Denies back pain or neck pain Integumentary Denies abscess or rash Neurologic Neurologic: Denies headache(s) or weakness Allergic/Immunologic Allergic/Immunologic ED: Denies mouth swelling or urticaria EXAM Physical Exam Const Vital Signs: 03/31/23 03:15 Temperature 98.7 F Temperature Source Oral Pulse Rate 123 H Respiratory Rate 18 Blood Pressure 146/100 H Blood Pressure Mean 115 Pulse Ox 98 Positive well nourished, well developed and obese General Appearance ED: well developed and NAD Nutritional Appearance: obese HEENT Reports moist mucous membranes Neck full ROM and supple Extremity Extremity Narrative: There is tenderness, edema, and ecchymosis over the lateral aspect of the right ankle. There is tenderness over the lateral malleolus. There is no obvious deformity noted. Range of motion was limited in all motions of the right ankle secondary to pain. There is no tenderness over the proximal fibula. There is no tenderness over the fifth metatarsal. Pedal pulses are equal bilateral. Sensation was intact to light touch in all digits. Capillary refill was less than 2 seconds in all digits. Neuro oriented x3, CN's II-XII intact bilaterally, moves all extremities and no sen abdulkadir deficits noted Sensorium / Orientation: alert Motor Exam: strength 5/5 throughout Psych mental status grossly normal MDM MDM MDM Narrative Medical decision making narrative: Differential diagnosis includes fracture and sprain. X-rays of the right ankle will be obtained to assess for fracture. X-rays of the right foot will be obtained to assess for fracture. Radiography Diagnostic Testing: X-rays of the right ankle were obtained. There are 3 views. On my independent interpretation, there is no acute fracture. There is some soft tissue swelling noted. Radiologist also interpreted the x-rays and agrees. X-rays of the right foot were obtained. There are 3 views. On my independent interpretation, there is no acute fracture noted. There is no dislocation noted. Radiologist also interpreted the x-rays and agrees. Treatment and Re-Evaluation Narrative: Patient was advised of her findings. Patient was instructed to ice and elevate the right ankle. Patient was given an Aircast. Patient was instructed to take Tylenol or ibuprofen as needed for pain. Patient was instructed to follow-up with her primary care physician in 5 to 7 days. Patient understood and was agreeable with the plan. All questions were answered. Discharge Plan Triage Chief Complaint: Lower Extremity Injury ED Provider: Pierce Carrillo Dx/Rx/DC Orders Clinical Impression: Fall, Right ankle sprain Instructions: ED Ankle Sprain (Adult) Prescriptions: No Action methylphenidate HCl 20 mg tablet 40 mg PO DAILY Patient Comments: TAKE 1 TABLET BY MOUTH TWICE DAILY FOR 30 DAYS Primary Care Provider: Mary Macdonald Referrals: Mary Macdonald MD [Primary Care Provider] - 5-7 Days Disposition Disposition: Home, Self Care
--- OUTSIDE RECORDS SUMMARY | 2023-03-31 03:49 | XMS RPT_ITS | CCD ---
Author Name Unknown Address [address] [place] [address] Organization [facility] Care Team Providers Care Patient Observer Name Role Phone Mary Merida MD Primary Care Provider Mary Merida MD Primary Care Provider Kory Walker APRN.CNP Primary Care Provider Mary Merida MD Primary Care Provider Mary Merida MD Primary Care Provider Mary Merida MD Primary Care Provider MAXINE VELA Attending Unavailable MARY MERIDA Primary Care Unavailable ANTOINE, CAROLYN Attending Unavailable MARY MERIDA Primary Care Unavailable MARY MERIDA Referring Unavailable MARY MERIDA Attending Unavailable MARY MERIDA Primary Care Unavailable Allergies Allergy Classification Reported Allergen(s) Allergy Type Date of Onset Reaction(s) Facility (20 sources) buPROPion; Translations: [BUPROPION] Drug Allergy 6 Other: See Comments [facility] Work Phone: (20 sources) Ragweed; Translations: [RAGWEED] Allergy to substance 6 Other: See Comments [facility] Work Phone: Medications Current Medications Medication Drug Class(es) Dates Sig (Normalized) Sig (Original) etonogestrel 68 mg drug implant (20 sources) Progestin Start: 04-07-2021 End: 04-06-2024 etonogestrel (NEXPLANON) subdermal implant 68 mg Indications: Nexplanon insertion , Insertion of implantable subdermal contraceptive 1 Each by SUBDERMAL route as directed. 1 Each 0 04/07/2021 04/06/2024 Active Completed/Discontinued Medications Medication Drug Class(es) Dates Sig (Normalized) Sig (Original) bisacodyl 5 mg delayed release oral tablet (20 sources) Stimulant Laxative Start: 10-14-2020 Bisacodyl (DULCOLAX) 5 mg tab Indications: Change in bowel habits Use as directed for Miralax / Gatorade Bowel Prep Kit 4 tablet 0 10/14/2020 Active Problems Active Problems Problem Classification Problem Date Documented Da te Episodic/Chronic Alcohol-related disorders (1 source) Binge drinker; Translations: [Alcohol abuse, uncomplicated] Chronic Anxiety disorders (1 source) Mixed anxiety and depressive disorder; Translations: [Anxiety disorder, unspecified] Chronic Attention-deficit, conduct, and disruptive behavior disorders (20 sources) Attention deficit hyperactivity disorder, predominantly inattentive type; Translations: [Attention-deficit hyperactivity disorder, predominantly inattentive type] Onset: 11-09-2014 Chronic Headache; including migraine (20 sources) Chronic tension-type headache; Translations: [Chronic tension-type headache, not intractable] Onset: 08-11-2009 09-21-2015 Chronic Hemorrhoids (1 source) Hemorrhoids; Translations: [Unspecified hemorrhoids] 09-27-2022 Episodic Nephritis; nephrosis; renal sclerosis (20 sources) Recurrent hematuria; Translations: [Recurrent and persistent hematuria with unspecified morphologic changes] Onset: 11-26-2019 11-26-2019 Chronic Nonspecific chest pain (1 source) Chest discomfort; Translations: [Other chest pain] Episodic Other circulatory disease (1 source) Elevated blood-pressure reading without diagnosis of hypertension; Translations: [Elevated blood-pressure reading, without diagnosis of hypertension] Episodic Other gastrointestinal disorders (20 sources) Irritable bowel syndrome; Translations: [Mixed irritable bowel syndrome] Onset: 11-20-2017 11-20-2017 Chronic Other gastrointestinal disorders (1 source) Alteration in bowel elimination; Translations: [Change in bowel habit] Episodic Other gastrointestinal disorders (1 source) Diarrhea; Translations: [Diarrhea, unspecified] Episodic Other gastrointestinal disorders (1 source) Abdominal bloating; Translations: [Abdominal distension (gaseous)] Episodic Other gastrointestinal disorders (1 source) Heartburn; Translations: [Heartburn] Episodic Other lower respiratory disease (1 source) Dyspnea; Translations: [Shortness of breath] Episodic Other nutritional; endocrine; and metabolic disorders (1 source) Obese class I; Translations: [Obesity, unspecified] Chronic Other upper respiratory disease (20 sources) Allergic rhinitis due to pollen; Translations: [Allergic rhinitis due to pollen] Onset: 11-08-2005 09-21-2015 Chronic Other upper respiratory disease (20 sources) Seasonal allergy; Translations: [Other seasonal allergic rhinitis] Onset: 11-09-2014 09-21-2015 Chronic Substance-related disorders (20 sources) Smoker; Translations: [Nicotine dependence, unspecified, uncomplicated] Onset: 11-09-2014 02-06-2021 Chronic Urinary tract infections (1 source) Urinary tract infectious disease; Translations: [Urinary tract infection, site not specified] Episodic Past or Other Problems Problem Classification Problem Date Documented Da te Episodic/Chronic Epilepsy; convulsions (20 sources) Seizure; Translations: [Unspecified convulsions] Onset: 02-14-2015 02-14-2015 Episodic Other aftercare (20 sources) Patient encounter status; Translations: [Other steel rigger (current) drug therapy] Onset: 07-17-2017 03-21-2018 Episodic Residual codes; unclassified (20 sources) Family history of autism; Translations: [Family history of other mental and behavioral disorders] Onset: 09-25-2011 02-06-2021 Episodic Results Test Name Value Interpretation Reference Range Facil ity Vital Signs Date Time Vital Sign Value Performing Clinician Cleo zimmer 09-27-2022 11:38-0400 Body weight 87.54 kg Carolyn Older RN CHILD.ELI Work Phone: [facility] 09-27-2022 11:38-0400 Diastolic blood pressure 78 mm[Hg] Carolyn Older RN CHILD.ELI Work Phone: [facility] 09-27-2022 11:38-0400 Heart rate 92 /min Carolyn Older RN CHILD.SPECIAL TECHNICAL OPERATIONS OFFICER Work Phone: [facility] 09-27-2022 11:38-0400 Respiratory rate 16 /min Carolyn Older RN CHILD.ELI Work Phone: [facility] 09-27-2022 11:38-0400 SaO2% (BldA) [Mass fraction] 98 % Carolyn Older RN CHILD.ELI Work Phone: [facility] 09-27-2022 11:38-0400 Systolic blood pressure 122 mm[Hg] Carolyn Denney APRN.CNP Work Phone: [facility] 05-10-2022 09:34-0400 Body weight 85.28 kg Mary Merida MD Work Phone: [facility] 05-10-2022 09:34-0400 Diastolic blood pressure 82 mm[Hg] Mary Merida MD Work Phone: [facility] 05-10-2022 09:34-0400 Heart rate 84 /min Mary Merida MD Work Phone: [facility] 05-10-2022 09:34-0400 Respiratory rate 16 /min Mary Merida MD Work Phone: [facility] 05-10-2022 09:34-0400 SaO2% (BldA) [Mass fraction] 98 % Mary Merida MD Work Phone: [facility] 05-10-2022 09:34-0400 Systolic blood pressure 110 mm[Hg] Mary Merida MD Work Phone: [facility] 12-21-2021 11:41-0500 Body temperature 97.3 [degF] Mary Merida MD Work Phone: [facility] 12-21-2021 11:41-0500 Body weight 83.46 kg Mary Merida MD Work Phone: [facility] 12-21-2021 11:41-0500 Diastolic blood pressure 76 mm[Hg] Mary Merida MD Work Phone: [facility] 12-21-2021 11:41-0500 Heart rate 103 /min Mary Merida MD Work Phone: [facility] 12-21-2021 11:41-0500 Respiratory rate 16 /min Mary Merida MD Work Phone: [facility] 12-21-2021 11:41-0500 SaO2% (BldA) [Mass fraction] 98 % Mary Merida MD Work Phone: [facility] 12-21-2021 11:41-0500 Systolic blood pressure 116 mm[Hg] Mary Merida MD Work Phone: [facility] 10-25-2021 16:37-0400 Diastolic blood pressure 84 mm[Hg] Mary Merida MD Work Phone: [facility] 10-25-2021 16:37-0400 Systolic blood pressure 122 mm[Hg] Mary Merida MD Work Phone: [facility] 10-25-2021 16:01-0400 Body weight 83.01 kg Mary Merida MD Work Phone: [facility] 10-25-2021 16:01-0400 Heart rate 104 /min Mary Merida MD Work Phone: [facility] 10-25-2021 16:01-0400 Respiratory rate 16 /min Mary Merida MD Work Phone: [facility] 10-25-2021 16:01-0400 SaO2% (BldA) [Mass fraction] 96 % Mary Merida MD Work Phone: [facility] 08-07-2021 15:15-0400 Body temperature 98.8 [degF] Sera Praisler-Wood RN CHILD.SPECIAL TECHNICAL OPERATIONS OFFICER Work Phone: [facility] 08-07-2021 15:15-0400 Body weight 81.28 kg Sera Praisler-Wood RN CHILD.SPECIAL TECHNICAL OPERATIONS OFFICER Work Phone: [facility] 08-07-2021 15:15-0400 Diastolic blood pressure 92 mm[Hg] Sera Praisler-Wood RN CHILD.SPECIAL TECHNICAL OPERATIONS OFFICER Work Phone: [facility] 08-07-2021 15:15-0400 Heart rate 113 /min Sera Praisler-Wood RN CHILD.SPECIAL TECHNICAL OPERATIONS OFFICER Work Phone: [facility] 08-07-2021 15:15-0400 Respiratory rate 20 /min Sera Praisler-Wood RN CHILD.SPECIAL TECHNICAL OPERATIONS OFFICER Work Phone: [facility] 08-07-2021 15:15-0400 SaO2% (BldA) [Mass fraction] 98 % Sera Praisler-Wood RN CHILD.SPECIAL TECHNICAL OPERATIONS OFFICER Work Phone: [facility] 08-07-2021 15:15-0400 Systolic blood pressure 152 mm[Hg] Sera Rondon APRN.SPECIAL TECHNICAL OPERATIONS OFFICER Work Phone: [facility] 07-19-2021 15:52-0400 Body height 160 cm Mary Merida MD Work Phone: [facility] 07-19-2021 15:52-0400 Body temperature 97.81 [degF] Mary Merida MD Work Phone: [facility] 07-19-2021 15:52-0400 Body weight 81.19 kg Mary Merida MD Work Phone: [facility] 07-19-2021 15:52-0400 Diastolic blood pressure 70 mm[Hg] Mary Merida MD Work Phone: [facility] 07-19-2021 15:52-0400 Heart rate 107 /min Mary Merida MD Work Phone: [facility] 07-19-2021 15:52-0400 Respiratory rate 12 /min Mary Merida MD Work Phone: [facility] 07-19-2021 15:52-0400 SaO2% (BldA) [Mass fraction] 95 % Mary Merida MD Work Phone: [facility] 07-19-2021 15:52-0400 Systolic blood pressure 122 mm[Hg] Mary Merida MD Work Phone: [facility] Encounters Encounter Date Encounter Type Care Provider Facility Start: 03-25-2023 E-mail encounter fro m caregiver Nurse [facility] Work Phone: [facility] Start: 03-25-2023 Patient encounter procedure Nu rse [facility] Work Phone: Allergy Procedures Date Procedure Procedure Detail Performing Clinician Start: 10-25-2021 Urnls dip stick/tabl et rgnt auto w/o microscopy Mary Merida MD Work Phone: Start: 08-28-2016 Adult depression screening assessment Carolyn Older RN CHILD.[facility] Work Phone: Plan of Treatment Date Care Activity Detail Author Start: 10-31-2028 Urine microalbumin profile [facility] Start: 03-23-2026 PAP TESTING PAP TESTING [facility] Start: 03-23-2026 Screening for malign ant neoplasm of cervix Pap Testing [facility] Start: 03-07-2025 HPV TESTING HPV TESTING [facility] Start: 03-07-2025 Screening for malign ant neoplasm of cervix HPV Testing [facility] Start: 03-23-2024 PAP TESTING PAP TESTING [facility] Start: 02-26-2024 Covid-19 Vaccine (#1) Covid-19 Vacci ne (#1) [facility] Immunizations Immunization Date Immunization Notes Care Provider Aliya young 11-19-2018 influenza, injectabl e, quadrivalent, preservative free Carolyn Older RN CHILD.[facility] Work Phone: [facility] Work Phone: 11-19-2018 influenza virus vaccine, unspecified formulation Nuha Angi RN CHILD.[facility] Work Phone: [facility] 10-31-2018 tetanus toxoid, redu jaida diphtheria toxoid, and acellular pertussis vaccine, adsorbed Carolyn Older RN CHILD.[facility] Work Phone: [facility] Work Phone: 05-16-2018 tetanus toxoid, redu jaida diphtheria toxoid, and acellular pertussis vaccine, adsorbed Carolyn Older RN CHILD.[facility] Work Phone: [facility] 12-18-2016 influenza, injectabl e, quadrivalent, contains preservative Carolyn Older RN CHILD.[facility] Work Phone: [facility] 11-09-2014 influenza, injectabl e, quadrivalent, contains preservative Carolyn Older RN CHILD.SPECIAL TECHNICAL OPERATIONS OFFICER Work Phone: [facility] Work Phone: 11-09-2014 influenza, seasonal, injectable Carolyn Older RN CHILD.SPECIAL TECHNICAL OPERATIONS OFFICER Work Phone: [facility] Work Phone: 11-27-2011 influenza virus vaccine, unspecified formulation Carolyn Older RN CHILD.[facility] Work Phone: [facility] Work Phone: 11-27-2011 tetanus toxoid, redu jaida diphtheria toxoid, and acellular pertussis vaccine, adsorbed Carolyn Older RN CHILD.[facility] Work Phone: [facility] Work Phone: 11-25-2007 human papilloma viru s vaccine, quadrivalent Carolyn Older RN CHILD.[facility] Work Phone: [facility] Work Phone: 07-23-2007 human papilloma viru s vaccine, quadrivalent Carolyn Older RN CHILD.[facility] Work Phone: [facility] Work Phone: 05-23-2007 human papilloma viru s vaccine, quadrivalent Carolyn Older RN CHILD.[facility] Work Phone: [facility] 05-23-2007 Meningococcal, MCV4, unspecified conjugate formulation(groups A, C, Y and W-135) Carolyn Older RN CHILD.[facility] Work Phone: [facility] 10-02-2005 tetanus and diphther ia toxoids, adsorbed, preservative free, for adult use (2 Lf of tetanus toxoid and 2 Lf of diphtheria toxoid) Carolyn Older RN CHILD.[facility] Work Phone: [facility] Work Phone: 06-17-2003 hepatitis B vaccine, pediatric or pediatric/adolescent dosage Carolyn Older RN CHILD.SPECIAL TECHNICAL OPERATIONS OFFICER Work Phone: [facility] Work Phone: 01-23-2003 hepatitis B vaccine, pediatric or pediatric/adolescent dosage Carolyn Older RN CHILD.[facility] Work Phone: [facility] Work Phone: 12-09-2002 hepatitis B vaccine, pediatric or pediatric/adolescent dosage Carolyn Older RN CHILD.[facility] Work Phone: [facility] Work Phone: 12-09-2002 measles, mumps and rubella virus vaccine Carolyn Older RN CHILD.[facility] Work Phone: [facility] Work Phone: 05-11-1997 diphtheria, tetanus toxoids and acellular pertussis vaccine, unspecified formulation Carolyn Older RN CHILD.[facility] Work Phone: [facility] Work Phone: 11-09-1993 diphtheria, tetanus toxoids and acellular pertussis vaccine Carolyn Older RN CHILD.[facility] Work Phone: [facility] Work Phone: 11-09-1993 haemophilus influenz ae type b vaccine, HbOC conjugate Carolyn Older RN CHILD.[facility] Work Phone: [facility] Work Phone: 11-09-1993 trivalent poliovirus vaccine, live, oral Carolyn Older RN CHILD.[facility] Work Phone: [facility] Work Phone: 01-12-1993 diphtheria, tetanus toxoids and acellular pertussis vaccine Carolyn Older RN CHILD.[facility] Work Phone: [facility] Work Phone: 01-12-1993 haemophilus influenz ae type b vaccine, HbOC conjugate Carolyn Older RN CHILD.[facility] Work Phone: [facility] Work Phone: 01-12-1993 trivalent poliovirus vaccine, live, oral Carolyn Older RN CHILD.[facility] Work Phone: [facility] Work Phone: 1992 diphtheria, tetanus toxoids and acellular pertussis vaccine Carolyn Older RN CHILD.[facility] Work Phone: [facility] Work Phone: 1992 haemophilus influenz ae type b vaccine, HbOC conjugate Carolyn Older RN CHILD.[facility] Work Phone: [facility] Work Phone: 1992 diphtheria, tetanus toxoids and acellular pertussis vaccine Carolyn Older RN CHILD.[facility] Work Phone: [facility] Work Phone: 1992 haemophilus influenz ae type b vaccine, HbOC conjugate Carolyn Antoine RN CHILD.SPECIAL TECHNICAL OPERATIONS OFFICER Work Phone: [facility] Work Phone: 1992 trivalent poliovirus vaccine, live, oral Carolyndebora Denney RN CHILD.SPECIAL TECHNICAL OPERATIONS OFFICER Work Phone: [facility] Work Phone: Payers Date Payer Category Payer Medicaid [id number] 2014 Medicaid [facility] MEDIC AID [facility] MEDICAID [id number] 2014-Present [phone] [address] [place] [address] Medicaid [id number] 2014 Medicaid [id number] Social History Date Type Detail Facility Start: 03-01-2020 End: 10-25-2021 Tobacco smoking status NHIS Ex-smoker [facility] History of tobacco use Cigarette Smoker [facility] Start: 03-01-2020 End: 10-25-2021 Tobacco use and exposure Smokeless tobacco non-user [facility] Start: 04-12-2021 End: 02-25-2023 Alcohol intake Current drinker of alcohol (finding) [facility] Start: 11-17-2019 History SDOH Alcohol Comment occasionally [facility] Start: 11-17-2019 End: 10-25-2021 Tobacco Comment smokes a pack of cigarettes a month [facility] Start: 1990 Sex Assigned At Not on file [facility] Start: 03-13-2021 End: 12-21-2021 Exposure to SARS-CoV-2 (event) Not sure [facility] History of tobacco use Current smoker [facility] Start: 10-27-2021 End: 11-06-2021 Exposure to SARS-CoV-2 (event) Unable to assess [facility] Start: 12-21-2021 End: 07-10-2022 History of Social function [facility] Work Phone: Start: 12-21-2021 End: 07-10-2022 Tobacco use panel [facility] Work Phone: Adult Depression Screening Assessment 0 [facility] Work Phone: Clinical Notes 10-30-2011 to 03-25-2023 Telephone Encounter - Carolyn Denney APRN.CNP - 03/25/2023 12:55 PM ESTTelephone Encounter - Lisa Membreno LPN - 03/25/2023 8:46 AM ESTTelephone Encounter - Deonna Medellin LPN - 01/21/2023 2:54 PM EST Note Date & Type Note Facility 03-25-2023 Miscellaneous Notes PDMP website checked and validated. All prescriptions have been APPROPRIATELY filled. No suspicious activity was identified. 03/25/2023 by Carolyn Denney APRN.ELI Patient has been identified by name and date of : No Patient phones for refill(s): Requested Prescriptions Pending Prescriptions Disp Refills methylphenidate (RITALIN) 20 mg tablet 60 tablet 0 Sig: Take 1 tablet by mouth two times a day for 30 days. Date of last office visit in primary care: 02/25/2023 Date of next office visit in primary care: 08/26/2023 Please advise. Thank you. Lisa Membreno LPN. documented in this encounter [facility] 02-25-2023 Note HNO ID: [id number] Author: MAXINE VELA APRN.CNP Service: ? Author Type: Nurse Practitioner Type: Progress Notes Filed: 02/25/2023 11:39 Note Text: CC: Patient presents with: Medication Follow-up: Allergy medication HPI Betzy Yip is a 32 year old female who presents today for above. Current Treatment: Ritalin 20 mg BID Feels treatment is working well: Yes. Weight loss: No Tremor: No Mood disorder: No Chest pain/Palpitations: No Allergy symptoms have been getting worse. Reports nasal congestion, runny nose and itchy/watery eyes. She is allergic to dogs but does not want to get rid of her dog. Has tried claritin, Zyrtec and Alvina without much relief. Review of Systems See HPI PAST MEDICAL HISTORY Diagnosis Date Allergic rhinitis, cause unspecified 1999 Allergic rhinitis Attention deficit hyperactivity disorder (ADHD), predominantly inattentive type 11/09/2014 Chronic tension headaches 08/11/2009 Seasonal allergies 11/09/2014 Seizure (HCC) 02/14/2015 Smoker 11/09/2014 started at age 22 and smoke 2 a day. PAST SURGICAL HISTORY Procedure Laterality Date DELIVERY ONLY TONSILLECTOMY PRIMARY/SECONDARY Tonsillectomy ALLERGIES Wellbutrin [Bupropion] and Ragweed MEDICATIONS methylphenidate (RITALIN) 20 mg tablet Take 1 tablet by mouth two times a day for 30 days. hydrocortisone (ANUSOL-HC) 25 mg suppository 1 Suppository by RECTAL route two times a day as needed (hemorrhoids/rectal pain). omeprazole (PRILOSEC) 20 mg capsule Take 1 capsule by mouth daily before breakfast. 1/2 hr before meal. etonogestrel (NEXPLANON) subdermal implant 68 mg 1 Each by SUBDERMAL route as directed. ondansetron orally disintegrating (ZOFRAN ODT) 4 mg disintegrating tablet Take 1 tablet by mouth every 6 hours as needed for nausea/vomiting. (Patient not taking: Reported on 05/10/2022) Etonogestrel-Ethinyl Estradiol (NUVARING) 0.12-0.015 mg/24 hr vaginal ring Use 1 Each vaginally as directed. Use as directed (Patient not taking: No sig reported) polyethylene glycol 3350 (MIRALAX, GLYCOLAX) 17 gram/dose powder Use as directed for Miralax / Gatorade Bowel Prep Kit (Patient not taking: Reported on 05/10/2022) Bisacodyl (DULCOLAX) 5 mg tab Use as directed for Miralax / Gatorade Bowel Prep Kit (Patient not taking: No sig reported) etonogestrel subdermal implant 68 mg (NEXPLANON) 1 Each by SUBDERMAL route one time only for 1 dose. FAMILY HISTORY Problem Relation Age of Onset Headache Mother Psychiatry Mother Thyroid Mother Allergies Father Alcohol/Drug Maternal Grandmother Arthritis Maternal Grandmother Psychiatry Maternal Grandfather Diabetes Paternal Grandmother Cancer Paternal Grandmother lung Coronary Artery Disease Paternal Grandfather Heart Paternal Grandfather Ischemic Heart Disease Paternal Grandfather Asthma Son Social History Tobacco Use Smoking status: Former Years: 1 Types: Cigarettes Smokeless tobacco: Never Tobacco comments: smokes a pack of cigarettes a month Vaping Use Vaping Use: current everyday user Substances: Nicotine Devices: Pre-filled or refillable cartridge Substance Use Topics Alcohol use: Yes Comment: occasionally Drug use: No BP 136/88 Pulse 115 Resp 16 Wt 91.6 kg (202 lb) LMP 03/20/2021 (Exact Date) SpO2 99% BMI 35.78 kg/m? Physical Exam Vitals reviewed. Constitutional: Appearance: Normal appearance. Neurological: Mental Status: She is alert. Psychiatric: Attention and Perception: Attention normal. Mood and Affect: Mood and affect normal. Speech: Speech normal. Behavior: Behavior normal. Thought Content: Thought content normal. Judgment: Judgment normal. Health maintenance reviewed with patient: Covid-19 Vaccine(1) Never done Influenza Vaccine(1) due on 10/12/2022 Depression Assessment due on 02/11/2023 HPV Testing due on 03/07/2025 Pap Testing due on 03/23/2026 DTaP,Tdap,Td Vaccine(9 - Td or Tdap) due on 10/31/2028 HPV Vaccine Completed Hepatitis B Vaccine Addressed Hepatitis C Screening Discontinued HIV Screening Discontinued DATA REVIEWED: Most recent labs Depression Screening PHQ-2 Score 02/25/2023 0 Depression screening tool completed and reviewed. Based on score and interview, patient is not at risk for depression. Screening tool discussed with patient, and I recommended no further intervention at this time. ASSESSMENT/PLAN: 1. Attention deficit hyperactivity disorder (ADHD), predominantly inattentive type - ICD9: 314.00, ICD10: F90.0 (primary diagnosis) Continue current medications as per orders, side effects discussed and patient education given and discussed Aware of risks associated with controlled substance use. No history of misuse/abuse/diversion of meds Controlled substance agreement up to date: Yes Urine tox screen up to date: Yes PDMP website checked and validated. All prescriptions have been APPROPRIATELY filled. No (more content not included)... [facility] 01-21-2023 Miscellaneous Notes Last office visit: 09/27/22 Next appointment scheduled: No future appointments scheduled at this time. Patient phones requesting refills as follows: Requested Prescriptions Pending Prescriptions Disp Refills hydrocortisone (ANUSOL-HC) 25 mg suppository 15 Suppository 1 Si Suppository by RECTAL route two times a day as needed (hemorrhoids/rectal pain). Please review and advise. Deonna Medellin LPN documented in this encounter [facility] 01-21-2023 Miscellaneous Notes Last office visit: 09/27/22 Next appointment scheduled: No future appointments scheduled at this time. Patient phones requesting refills as follows: Requested Prescriptions Pending Prescriptions Disp Refills methylphenidate (RITALIN) 20 mg tablet 60 tablet 0 Sig: Take 1 tablet by mouth two times a day for 30 days. Please review and advise. Deonna Medellin LPN documented in this encounter [facility] 12-24-2022 Miscellaneous Notes Patient has been identified by name and date of : Yes Patient phones for refill(s): Requested Prescriptions Pending Prescriptions Disp Refills methylphenidate (RITALIN) 20 mg tablet 60 tablet 0 Sig: Take 1 tablet by mouth two times a day for 30 days. Date of last office visit in primary care: 09/27/2022 Date of next office visit in primary care: 12/27/2022 Last 2 Encounter Wt Readings: Date: Wt: 09/27/2022 87.5 kg (193 lb) 05/10/2022 85.3 kg (188 lb) Previous labs/tests for medication: Not applicable Please advise. Thank you. Annia Menon LPN. documented in this encounter [facility] 11-20-2022 Miscellaneous Notes last fill 10/26 Rx sent Patient has been identified by name and date of : Yes Patient phones for refill(s): Requested Prescriptions Pending Prescriptions Disp Refills methylphenidate (RITALIN) 20 mg tablet 60 tablet 0 Sig: Take 1 tablet by mouth two times a day for 30 days. Date of last office visit in primary care:10/21/2022 Date of next office visit in primary care: 12/27/2022 Last 2 Encounter Wt Readings: Date: Wt: 09/27/2022 87.5 kg (193 lb) 05/10/2022 85.3 kg (188 lb) Previous labs/tests for medication: Not applicable Please advise. Thank you. Annia Menon LPN. documented in this encounter [facility] 10-22-2022 Miscellaneous Notes PDMP website checked and validated. All prescriptions have been APPROPRIATELY filled. No suspicious activity was identified. 10/22/2022 by Nuha Whtiley APRN.CNP Patient has been identified by name and date of : Yes Patient phones for refill(s): Requested Prescriptions Pending Prescriptions Disp Refills methylphenidate (RITALIN) 20 mg tablet 60 tablet 0 Sig: Take 1 tablet by mouth twice daily for 30 days. Date of last office visit in primary care: 09/27/2022 Annual: 12/27/2022 Last 2 Encounter Wt Readings: Date: Wt: 09/27/2022 87.5 kg (193 lb) 05/10/2022 85.3 kg (188 lb) Previous labs/tests for medication: Not applicable Please advise. Thank you. Annia Menon LPN documented in this encounter [facility] 09-27-2022 Note HNO ID: [id number] Author: Carolyn Denney APRN.CNP Service: ? Author Type: Nurse Practitioner Type: Progress Notes Filed: 09/27/2022 3:53 PM Note Text: CC: Patient presents with: Recheck: Medication follow up HPI Betzy Yip is a 32 year old female who presents today for routine ADHD follow up. ADHD: Has been on this dose of ritalin for the past year. Feels mostly controlled with current dose. States she might need more of an extended release or dose change but this is not severe and would prefer to discuss changes with her PCP when she is back in office. GERD: Takes omeprazole only when she know she is going to eat spicy foods or right after spicy foods Denies heartburn, abdominal pain, nausea, or difficulty swallowing. Has had hemorrhoids for years with pain. She has noticed an increase in pain and size of her hemorrhoids. Will have episodes of pain and irritation every other month when in the past it would be only a few times a year. Also now with intermittent moments of bright red blood with stools. Last BM was yesterday and reports as normal without any blood . Once a week she will have a large hard stool difficult to pass but all other days are soft formed and normal. Has tried over the counter hemorrhoid creams without improvement. Currently without any pain or inflammation but wants to evaluate having this removed and have something else available when needed. REVIEW OF SYSTEMS General: no fevers, no chills, no night sweats, no recurrent infections, no change in appetite, no change in energy, and no significant changes in weight Respiratory: no cough, no wheezing, no shortness of breath, no hemoptysis Cardiovascular: no chest pain, no chest pressure, no palpitations, and no swelling GI: No nausea, vomiting, or diarrhea Neurologic: No headache, weakness, numbness, tingling, dizziness, syncope. PAST MEDICAL HISTORY Diagnosis Date Allergic rhinitis, cause unspecified 1999 Allergic rhinitis Attention deficit hyperactivity disorder (ADHD), predominantly inattentive type 11/09/2014 Chronic tension headaches 08/11/2009 Seasonal allergies 11/09/2014 Seizure (HCC) 02/14/2015 Smoker 11/09/2014 started at age 22 and smoke 2 a day. PAST SURGICAL HISTORY Procedure Laterality Date DELIVERY ONLY TONSILLECTOMY PRIMARY/SECONDARY Tonsillectomy ALLERGIES Wellbutrin [Bupropion] and Ragweed MEDICATIONS methylphenidate (RITALIN) 20 mg tablet Take 1 tablet by mouth twice daily for 30 days. Do not start before September 24, 2022. omeprazole (PRILOSEC) 20 mg capsule Take 1 capsule by mouth daily before breakfast. 1/2 hr before meal. ondansetron orally disintegrating (ZOFRAN ODT) 4 mg disintegrating tablet Take 1 tablet by mouth every 6 hours as needed for nausea/vomiting. (Patient not taking: Reported on 05/10/2022) etonogestrel (NEXPLANON) subdermal implant 68 mg 1 Each by SUBDERMAL route as directed. Etonogestrel-Ethinyl Estradiol (NUVARING) 0.12-0.015 mg/24 hr vaginal ring Use 1 Each vaginally as directed. Use as directed (Patient not taking: No sig reported) polyethylene glycol 3350 (MIRALAX, GLYCOLAX) 17 gram/dose powder Use as directed for Miralax / Gatorade Bowel Prep Kit (Patient not taking: Reported on 05/10/2022) Bisacodyl (DULCOLAX) 5 mg tab Use as directed for Miralax / Gatorade Bowel Prep Kit (Patient not taking: No sig reported) etonogestrel subdermal implant 68 mg (NEXPLANON) 1 Each by SUBDERMAL route one time only for 1 dose. FAMILY HISTORY Problem Relation Age of Onset Headache Mother Psychiatry Mother Thyroid Mother Allergies Father Alcohol/Drug Maternal Grandmother Arthritis Maternal Grandmother Psychiatry Maternal Grandfather Diabetes Paternal Grandmother Cancer Paternal Grandmother lung Coronary Artery Disease Paternal Grandfather Heart Paternal Grandfather Ischemic Heart Disease Paternal Grandfather Asthma Son Social History Tobacco Use Smoking status: Former Years: 1 Types: Cigarettes Smokeless tobacco: Never Tobacco comments: smokes a pack of cigarettes a month Vaping Use Vaping Use: current everyday user Substances: Nicotine Devices: Pre-filled or refillable cartridge Substance Use Topics Alcohol use: Yes Comment: occasionally Drug use: No PHYSICAL EXAM BP 122/78 Pulse 92 Resp 16 Wt 87.5 kg (193 lb) LMP 03/20/2021 (Exact Date) SpO2 98% BMI 34.19 kg/m? General Appearance: well appearing, in no acute distress, alert Pysch: mood and affect broad and appropriate Skin: Skin color, texture, turgor normal for age; Eyes: conjunctiva pink and moist, no icterus, sclera white, non-injected Lungs: Lungs clear to auscultation. No wheezing, rhonchi, rales. Heart: RRR without murmur, gallop, or rubs. No ectopy Health maintenance reviewed with patient: COVID-19 VACCINE(1) due on 10/25/2022 INFLUENZA(1) due on 10/12/2022 HPV TESTING due on 03/07/2025 PAP TESTING due on (more content not included)... [facility] 09-27-2022 History of Presen t illness Narrative CC: Patient presents with: Recheck: Medication follow up HPI Betzy Yip is a 32 year old female who presents today for routine ADHD follow up. ADHD: Has been on this dose of ritalin for the past year. Feels mostly controlled with current dose. States she might need more of an extended release or dose change but this is not severe and would prefer to discuss changes with her PCP when she is back in office. GERD: Takes omeprazole only when she know she is going to eat spicy foods or right after spicy foods Denies heartburn, abdominal pain, nausea, or difficulty swallowing. Has had hemorrhoids for years with pain. She has noticed an increase in pain and size of her hemorrhoids. Will have episodes of pain and irritation every other month when in the past it would be only a few times a year. Also now with intermittent moments of bright red blood with stools. Last BM was yesterday and reports as normal without any blood . Once a week she will have a large hard stool difficult to pass but all other days are soft formed and normal. Has tried over the counter hemorrhoid creams without improvement. Currently without any pain or inflammation but wants to evaluate having this removed and have something else available when needed. REVIEW OF SYSTEMS General: no fevers, no chills, no night sweats, no recurrent infections, no change in appetite, no change in energy, and no significant changes in weight Respiratory: no cough, no wheezing, no shortness of breath, no hemoptysis Cardiovascular: no chest pain, no chest pressure, no palpitations, and no swelling GI: No nausea, vomiting, or diarrhea Neurologic: No headache, weakness, numbness, tingling, dizziness, syncope. PAST MEDICAL HISTORY Diagnosis Date Allergic rhinitis, cause unspecified 1999 Allergic rhinitis Attention deficit hyperactivity disorder (ADHD), predominantly inattentive type 11/09/2014 Chronic tension headaches 08/11/2009 Seasonal allergies 11/09/2014 Seizure (HCC) 02/14/2015 Smoker 11/09/2014 started at age 22 and smoke 2 a day. PAST SURGICAL HISTORY Procedure Laterality Date DELIVERY ONLY TONSILLECTOMY PRIMARY/SECONDARY <AGE 14 2006 Tonsillectomy ALLERGIES Wellbutrin [Bupropion] and Ragweed MEDICATIONS methylphenidate (RITALIN) 20 mg tablet Take 1 tablet by mouth twice daily for 30 days. Do not start before September 24, 2022. omeprazole (PRILOSEC) 20 mg capsule Take 1 capsule by mouth daily before breakfast. 1/2 hr before meal. ondansetron orally disintegrating (ZOFRAN ODT) 4 mg disintegrating tablet Take 1 tablet by mouth every 6 hours as needed for nausea/vomiting. (Patient not taking: Reported on 05/10/2022) etonogestrel (NEXPLANON) subdermal implant 68 mg 1 Each by SUBDERMAL route as directed. Etonogestrel-Ethinyl Estradiol (NUVARING) 0.12-0.015 mg/24 hr vaginal ring Use 1 Each vaginally as directed. Use as directed (Patient not taking: No sig reported) polyethylene glycol 3350 (MIRALAX, GLYCOLAX) 17 gram/dose powder Use as directed for Miralax / Gatorade Bowel Prep Kit (Patient not taking: Reported on 05/10/2022) Bisacodyl (DULCOLAX) 5 mg tab Use as directed for Miralax / Gatorade Bowel Prep Kit (Patient not taking: No sig reported) etonogestrel subdermal implant 68 mg (NEXPLANON) 1 Each by SUBDERMAL route one time only for 1 dose. FAMILY HISTORY Problem Relation Age of Onset Headache Mother Psychiatry Mother Thyroid Mother Allergies Father Alcohol/Drug Maternal Grandmother Arthritis Maternal Grandmother Psychiatry Maternal Grandfather Diabetes Paternal Grandmother Cancer Paternal Grandmother lung Coronary Artery Disease Paternal Grandfather Heart Paternal Grandfather Ischemic Heart Disease Paternal Grandfather Asthma Son Social History Tobacco Use Smoking status: Former Years: 1 Types: Cigarettes Smokeless tobacco: Never Tobacco comments: smokes a pack of cigarettes a month Vaping Use Vaping Use: current everyday user Substances: Nicotine Devices: Pre-filled or refillable cartridge Substance Use Topics Alcohol use: Yes Comment: occasionally Drug use: No PHYSICAL EXAM BP 122/78 Pulse 92 Resp 16 Wt 87.5 kg (193 lb) LMP 03/20/2021 (Exact Date) SpO2 98% BMI 34.19 kg/m General Appearance: well appearing, in no acute distress, alert Pysch: mood and affect broad and appropriate Skin: Skin color, texture, turgor normal for age; Eyes: conjunctiva pink and moist, no icterus, sclera white, non-injected Lungs: Lungs clear to auscultation. No wheezing, rhonchi, rales. Heart: RRR without murmur, gallop, or rubs. No ectopy Health maintenance reviewed with patient: COVID-19 VACCINE(1) due on 10/25/2022 INFLUENZA(1) due on 10/12/2022 HPV TESTING due on 03/07/2025 PAP TESTING due on 03/23/2026 DTAP,TDAP,TD(9 - Td or Tdap) due on 10/31/2028 HPV VACCINE Completed DEPRESSION ASSESSMENT Completed HEPATITIS B Addressed HEPATITIS C SCREENING Discontinued HIV SCREENING Discontinued DATA REVIEWED: No new labs ASSESSMENT/PLAN: 1. Attention deficit hyperactivity disorder (ADHD), predominantly inattentive type - ICD9: 314.00, ICD10: F90.0 (primary diagnosis) - mostly controlled with current dose. Patient to call if she would like to discuss other options further but at this time awaiting for return of PCP 2. Hemorrhoids, unspecified hemorrhoid type - ICD9: 455.6, ICD10: K64.9 - no concerns today will order anusol suppositories to have for next episode of irritation and have her evaluated by general surgery to discuss possible removal - CONSULT TO GENERAL SURGERY 3. Annual physical exam - ICD9: V70.0, ICD10: Z00.00 - not completed today, labs ordered so annual exam can be completed at next visit. - LIPID PANEL BASIC - COMP METABOLIC PANEL - CBC 4. Lipid screening - ICD9: V77.91, ICD10: Z13.220 - LIPID PANEL BASIC - COMP METABOLIC PANEL Prescription instructions reviewed with patient as applicable. Potential red flag symptoms discussed with the patient. Reviewed appropriate action plan to take if red flag symptoms occur. Patient agreeable to treatment plan. Carolyn Denney APRN.CNP documented in this encounter [facility] 09-25-2022 Miscellaneous Notes Spoke with pt and apt has been booked. Juanis Cain LPN 1st attempt left message to return call to schedule OV with PCP team for med refills. My chart message also sent. LVM for pt to call and schedule follow up. 1st attempt. Candice PSS Needs seen before more refills can be given for this med--needs seen at least every [address] Merida 04/20/22 The following approved medication requests have been transmitted electronically. Requested Prescriptions Signed Prescriptions Disp Refills methylphenidate (RITALIN) 20 mg tablet 60 tablet 0 Sig: Take 1 tablet by mouth twice daily for 30 days. Do not start before September 24, 2022. Authorizing Provider: MICKY RASCON MD Patient has been identified by name and date of : No Patient phones for refill(s): Requested Prescriptions Pending Prescriptions Disp Refills methylphenidate (RITALIN) 20 mg tablet 60 tablet 0 Sig: Take 1 tablet by mouth twice daily for 30 days. Date of last office visit in primary care: 05/10/22 Last 2 Encounter Wt Readings: Date: Wt: 05/10/2022 85.3 kg (188 lb) 12/21/2021 83.5 kg (184 lb) Previous labs/tests for medication: Not applicable Please advise. Thank you. Lisa Finn LPN documented in this encounter [facility] 08-24-2022 Miscellaneous Notes PATIENT NOTIFIED OF SAME. Please let her know this was sent. [facility] is calling [facility] the Disp Refills Start End methylphenidate (RITALIN) 20 mg tablet Patient requesting a new script be sent to [facility] in [place] documented in this encounter [facility] 08-20-2022 Miscellaneous Notes Patient has been identified by name and date of : No Patient phones for refill(s): Requested Prescriptions Pending Prescriptions Disp Refills methylphenidate (RITALIN) 20 mg tablet 60 tablet 0 Sig: Take 1 tablet by mouth twice daily for 30 days. Date of last office visit in primary care: 05/10/22 Last 2 Encounter Wt Readings: Date: Wt: 05/10/2022 85.3 kg (188 lb) 12/21/2021 83.5 kg (184 lb) Previous labs/tests for medication: Not applicable Please advise. Thank you. Lisa Finn LPN documented in this encounter [facility] 06-20-2022 Miscellaneous Notes Patient has been identified by name and date of : No Patient phones for refill(s): Requested Prescriptions Pending Prescriptions Disp Refills methylphenidate (RITALIN) 20 mg tablet 60 tablet 0 Sig: Take 1 tablet by mouth twice daily for 30 days. Date of last office visit in primary care: 05/10/22 Last 2 Encounter Wt Readings: Date: Wt: 05/10/2022 85.3 kg (188 lb) 12/21/2021 83.5 kg (184 lb) Previous labs/tests for medication: Not applicable Please advise. Thank you. Lisa Finn LPN documented in this encounter [facility] 05-10-2022 Note HNO ID: [id number] Author: Mary Merida MD Service: ? Author Type: Physician Type: Progress Notes Filed: 05/10/2022 1:55 PM Note Text: Reason for Visit Patient presents with: Recheck: Med check Betzy Yip is a 32 year old female who presents here today for Above Complaints.. Health Maintenance DEPRESSION ASSESSMENT HPI She has lost weight over the past 3 years. She gets back to the 160 range if she exercises, going to join gym today. The ritalin helps her with her focus at work , same dose for the past many years. No concerns Has been drinking less than before after not feeling good after getting drunk. Not been needing prilosec now that she is not drinking much Nexplanon for control. No constipation at this time. No seizures since she last saw me , was ppt by wellbutrin Still does a vap pen Depression Screening 07/27/2015 08/28/2016 12/21/2021 05/10/2022 PHQ-2 Score 0 1 0 0 Depression screening tool completed and reviewed. Based on score and interview, patient is not at risk for depression. Screening tool discussed with patient, and I recommended no further intervention at this time. No problem-specific Assessment AND Plan notes found for this encounter. PAST MEDICAL HISTORY Diagnosis Date Allergic rhinitis, cause unspecified 1999 Allergic rhinitis Attention deficit hyperactivity disorder (ADHD), predominantly inattentive type 11/09/2014 Chronic tension headaches 08/11/2009 Seasonal allergies 11/09/2014 Seizure (HCC) 02/14/2015 Smoker 11/09/2014 started at age 22 and smoke 2 a day. PAST SURGICAL HISTORY Procedure Laterality Date DELIVERY ONLY TONSILLECTOMY PRIMARY/SECONDARY Tonsillectomy FAMILY HISTORY Problem Relation Age of Onset Headache Mother Psychiatry Mother Thyroid Mother Allergies Father Alcohol/Drug Maternal Grandmother Arthritis Maternal Grandmother Psychiatry Maternal Grandfather Diabetes Paternal Grandmother Cancer Paternal Grandmother lung Coronary Artery Disease Paternal Grandfather Heart Paternal Grandfather Ischemic Heart Disease Paternal Grandfather Asthma Son Social History Tobacco Use Smoking status: Former Years: 1.00 Types: Cigarettes Smokeless tobacco: Never Tobacco comments: smokes a pack of cigarettes a month Vaping Use Vaping Use: current everyday user Substances: Nicotine Devices: Pre-filled or refillable cartridge Substance Use Topics Alcohol use: Yes Comment: occasionally Drug use: No Past medical history, appointments, medications, allergies reviewed. Pertinent Lab/Diagnostic Studies are reviewed and discussed today Current Outpatient Medications: methylphenidate (RITALIN) 20 mg tablet omeprazole (PRILOSEC) 20 mg capsule etonogestrel (NEXPLANON) subdermal implant 68 mg methylphenidate (RITALIN) 20 mg tablet ondansetron orally disintegrating (ZOFRAN ODT) 4 mg disintegrating tablet Etonogestrel-Ethinyl Estradiol (NUVARING) 0.12-0.015 mg/24 hr vaginal ring polyethylene glycol 3350 (MIRALAX, GLYCOLAX) 17 gram/dose powder Bisacodyl (DULCOLAX) 5 mg tab etonogestrel subdermal implant 68 mg (NEXPLANON) Review of Systems CONSTITUTIONAL: No fevers, chills night sweats, unintended weight loss CARDIOVASCULAR: No chest pain, dyspnea, palpitations, orthopnea, PND, ankle edema. PULM: No dyspnea, unexplained cough. GI: No dysphagia/odynophagia, problematic reflux, constipation, diarrhea, changes in stool habits, hematochezia, melena. : No new urinary complaints, including dysuria, gross hematuria or pyuria. NEURO: No new balance problems, peripheral weakness/paresthesias or numbness of concern. Physical Exam BP 110/82 Pulse 84 Resp 16 Wt 85.3 kg (188 lb) LMP 03/20/2021 (Exact Date) SpO2 98% BMI 33.30 kg/m? General appearance: Well appearing, alert, in no acute distress, well nourished. Skin: Skin color, texture, turgor normal, no suspicious rashes or lesions Head: Normocephalic, no masses, lesions, tenderness or abnormalities Eyes: Anicteric sclera. Pupils are equally round and reactive to light. Extraocular movements are intact. Lungs: Lungs clear to auscultation. No wheezing, rhonchi, rales Heart: RRR without murmur, gallop, or rubs. Extremities: No deformities, edema, skin discoloration, clubbing or cyanosis. Good capillary refill. ASSESSMENT/PLAN: 1. Seizure (HCC) - ICD9: 780.39, ICD10: R56.9 (primary diagnosis) The patient had seizures only with wellbutrin and off the medication she is not having any issues 2. Attention deficit hyperactivity disorder (ADHD), predominantly inattentive type - ICD9: 314.00, ICD10: F90.0 Refilled medication 3. Chronic tension-type headache, not intractable - ICD9: 339.12, ICD10: G44.229 4. Smoker - ICD9: 305.1, ICD10: F17.200 - Cessation encouraged. - Physiologic and physical aspects of tobacco addiction as well as strategies for quitting were discussed. - Counseling was given (more content not included)... [facility] 05-10-2022 History of Presen t illness Narrative Reason for Visit Patient presents with: Recheck: Med check Betzy Yip is a 32 year old female who presents here today for Above Complaints.. Health Maintenance DEPRESSION ASSESSMENT HPI She has lost weight over the past 3 years. She gets back to the 160 range if she exercises, going to join gym today. The ritalin helps her with her focus at work , same dose for the past many years. No concerns Has been drinking less than before after not feeling good after getting drunk. Not been needing prilosec now that she is not drinking much Nexplanon for control. No constipation at this time. No seizures since she last saw me , was ppt by wellbutrin Still does a vap pen Depression Screening 07/27/2015 08/28/2016 12/21/2021 05/10/2022 PHQ-2 Score 0 1 0 0 Depression screening tool completed and reviewed. Based on score and interview, patient is not at risk for depression. Screening tool discussed with patient, and I recommended no further intervention at this time. No problem-specific Assessment & Plan notes found for this encounter. PAST MEDICAL HISTORY Diagnosis Date Allergic rhinitis, cause unspecified 1999 Allergic rhinitis Attention deficit hyperactivity disorder (ADHD), predominantly inattentive type 11/09/2014 Chronic tension headaches 08/11/2009 Seasonal allergies 11/09/2014 Seizure (HCC) 02/14/2015 Smoker 11/09/2014 started at age 22 and smoke 2 a day. PAST SURGICAL HISTORY Procedure Laterality Date DELIVERY ONLY TONSILLECTOMY PRIMARY/SECONDARY <AGE 14 2007 Tonsillectomy FAMILY HISTORY Problem Relation Age of Onset Headache Mother Psychiatry Mother Thyroid Mother Allergies Father Alcohol/Drug Maternal Grandmother Arthritis Maternal Grandmother Psychiatry Maternal Grandfather Diabetes Paternal Grandmother Cancer Paternal Grandmother lung Coronary Artery Disease Paternal Grandfather Heart Paternal Grandfather Ischemic Heart Disease Paternal Grandfather Asthma Son Social History Tobacco Use Smoking status: Former Years: 1.00 Types: Cigarettes Smokeless tobacco: Never Tobacco comments: smokes a pack of cigarettes a month Vaping Use Vaping Use: current everyday user Substances: Nicotine Devices: Pre-filled or refillable cartridge Substance Use Topics Alcohol use: Yes Comment: occasionally Drug use: No Past medical history, appointments, medications, allergies reviewed. Pertinent Lab/Diagnostic Studies are reviewed and discussed today Current Outpatient Medications: methylphenidate (RITALIN) 20 mg tablet omeprazole (PRILOSEC) 20 mg capsule etonogestrel (NEXPLANON) subdermal implant 68 mg methylphenidate (RITALIN) 20 mg tablet ondansetron orally disintegrating (ZOFRAN ODT) 4 mg disintegrating tablet Etonogestrel-Ethinyl Estradiol (NUVARING) 0.12-0.015 mg/24 hr vaginal ring polyethylene glycol 3350 (MIRALAX, GLYCOLAX) 17 gram/dose powder Bisacodyl (DULCOLAX) 5 mg tab etonogestrel subdermal implant 68 mg (NEXPLANON) Review of Systems CONSTITUTIONAL: No fevers, chills night sweats, unintended weight loss CARDIOVASCULAR: No chest pain, dyspnea, palpitations, orthopnea, PND, ankle edema. PULM: No dyspnea, unexplained cough. GI: No dysphagia/odynophagia, problematic reflux, constipation, diarrhea, changes in stool habits, hematochezia, melena. : No new urinary complaints, including dysuria, gross hematuria or pyuria. NEURO: No new balance problems, peripheral weakness/paresthesias or numbness of concern. Physical Exam BP 110/82 Pulse 84 Resp 16 Wt 85.3 kg (188 lb) LMP 03/20/2021 (Exact Date) SpO2 98% BMI 33.30 kg/m General appearance: Well appearing, alert, in no acute distress, well nourished. Skin: Skin color, texture, turgor normal, no suspicious rashes or lesions Head: Normocephalic, no masses, lesions, tenderness or abnormalities Eyes: Anicteric sclera. Pupils are equally round and reactive to light. Extraocular movements are intact. Lungs: Lungs clear to auscultation. No wheezing, rhonchi, rales Heart: RRR without murmur, gallop, or rubs. Extremities: No deformities, edema, skin discoloration, clubbing or cyanosis. Good capillary refill. ASSESSMENT/PLAN: 1. Seizure (HCC) - ICD9: 780.39, ICD10: R56.9 (primary diagnosis) The patient had seizures only with wellbutrin and off the medication she is not having any issues 2. Attention deficit hyperactivity disorder (ADHD), predominantly inattentive type - ICD9: 314.00, ICD10: F90.0 Refilled medication 3. Chronic tension-type headache, not intractable - ICD9: 339.12, ICD10: G44.229 4. Smoker - ICD9: 305.1, ICD10: F17.200 - Cessation encouraged. - Physiologic and physical aspects of tobacco addiction as well as strategies for quitting were discussed. - Counseling was given focusing on the harmful effects of this addiction especially given the patient's medical condition(s) which will be worsened because of the chemicals in tobacco. Mary Merida MD documented in this encounter [facility] 04-24-2022 Miscellaneous Notes PDMP website checked and validated. All prescriptions have been APPROPRIATELY filled. No suspicious activity was identified. 04/24/2022 by Maxine Denney APRN.ELI Patient has been identified by name and date of : No Patient phones for refill(s): Requested Prescriptions Pending Prescriptions Disp Refills methylphenidate (RITALIN) 20 mg tablet 60 tablet 0 Sig: Take 1 tablet by mouth twice daily for 30 days. Date of last office visit in primary care: 12/21/21 Last 2 Encounter Wt Readings: Date: Wt: 12/21/2021 83.5 kg (184 lb) 11/06/2021 82.1 kg (181 lb) Previous labs/tests for medication: Not applicable Please advise. Thank you. Lisa Finn LPN documented in this encounter [facility] 03-23-2022 Miscellaneous Notes PDMP website checked and validated. All prescriptions have been APPROPRIATELY filled. No suspicious activity was identified. 03/23/2022 by Carolyn Denney APRN.ELI Patient has been identified by name and date of : No Patient phones for refill(s): Requested Prescriptions Pending Prescriptions Disp Refills methylphenidate (RITALIN) 20 mg tablet 60 tablet 0 Sig: Take 1 tablet by mouth twice daily for 30 days. Date of last office visit in primary care: 12/21/21 Last 2 Encounter Wt Readings: Date: Wt: 12/21/2021 83.5 kg (184 lb) 11/06/2021 82.1 kg (181 lb) Previous labs/tests for medication: Not applicable Please advise. Thank you. Lisa Finn LPN documented in this encounter [facility] 12-29-2021 Miscellaneous Notes PDMP website checked and validated. All prescriptions have been APPROPRIATELY filled. No suspicious activity was identified. 12/29/2021 by Carolyn Denney APRN.ELI RICK: 12/21/2021 Last refill: 12/24/2021 QTY: 60 Refills: 0 documented in this encounter [facility] 12-21-2021 History of Presen t illness Narrative Reason for Visit Patient presents with: F/U 1 month Betzy Yip is a 31 year old female who presents here today for Above Complaints.. Health Maintenance DEPRESSION ASSESSMENT HPI Patient reports complete resolution of her abdominal issues after the bactrim. No questions or concerns. Add medications are helping her, she is very pleased with them no side effects that are intolerable. No changes with appetite. Her headache are not a concern at this time . No concern for seizures at this time. No problem-specific Assessment & Plan notes found for this encounter. PAST MEDICAL HISTORY Diagnosis Date Allergic rhinitis, cause unspecified 1999 Allergic rhinitis Attention deficit hyperactivity disorder (ADHD), predominantly inattentive type 11/09/2014 Chronic tension headaches 08/11/2009 Seasonal allergies 11/09/2014 Seizure (HCC) 02/14/2015 Smoker 11/09/2014 started at age 22 and smoke 2 a day. PAST SURGICAL HISTORY Procedure Laterality Date DELIVERY ONLY TONSILLECTOMY PRIMARY/SECONDARY <AGE 14 2006 Tonsillectomy FAMILY HISTORY Problem Relation Age of Onset Headache Mother Psychiatry Mother Thyroid Mother Allergies Father Alcohol/Drug Maternal Grandmother Arthritis Maternal Grandmother Psychiatry Maternal Grandfather Diabetes Paternal Grandmother Cancer Paternal Grandmother lung Coronary Artery Disease Paternal Grandfather Heart Paternal Grandfather Ischemic Heart Disease Paternal Grandfather Asthma Son Social History Tobacco Use Smoking status: Former Years: 1.00 Types: Cigarettes Smokeless tobacco: Never Tobacco comments: smokes a pack of cigarettes a month Vaping Use Vaping Use: current everyday user Substances: Nicotine Devices: Pre-filled or refillable cartridge Substance Use Topics Alcohol use: Yes Comment: occasionally Drug use: No Past medical history, appointments, medications, allergies reviewed. Pertinent Lab/Diagnostic Studies are reviewed and discussed today Current Outpatient Medications: ondansetron orally disintegrating (ZOFRAN ODT) 4 mg disintegrating tablet omeprazole (PRILOSEC) 20 mg capsule methylphenidate (RITALIN) 20 mg tablet [START ON 12/24/2021] methylphenidate (RITALIN) 20 mg tablet etonogestrel (NEXPLANON) subdermal implant 68 mg polyethylene glycol 3350 (MIRALAX, GLYCOLAX) 17 gram/dose powder Etonogestrel-Ethinyl Estradiol (NUVARING) 0.12-0.015 mg/24 hr vaginal ring Bisacodyl (DULCOLAX) 5 mg tab etonogestrel subdermal implant 68 mg (NEXPLANON) Review of Systems CONSTITUTIONAL: No fevers, chills night sweats, unintended weight loss CARDIOVASCULAR: No chest pain, dyspnea, palpitations, orthopnea, PND, ankle edema. PULM: No dyspnea, unexplained cough. GI: No dysphagia/odynophagia, problematic reflux, constipation, diarrhea, changes in stool habits, hematochezia, melena. : No new urinary complaints, including dysuria, gross hematuria or pyuria. NEURO: No new balance problems, peripheral weakness/paresthesias or numbness of concern. Physical Exam BP 116/76 Pulse 103 Temp 36.3 C (97.3 F) (Temporal) Resp 16 Wt 83.5 kg (184 lb) LMP 03/20/2021 (Exact Date) SpO2 98% BMI 32.59 kg/m General appearance: Well appearing, alert, in no acute distress, well nourished. Skin: Skin color, texture, turgor normal, no suspicious rashes or lesions Head: Normocephalic, no masses, lesions, tenderness or abnormalities Eyes: Anicteric sclera. Pupils are equally round and reactive to light. Extraocular movements are intact. Lungs: Lungs clear to auscultation. No wheezing, rhonchi, rales Heart: RRR without murmur, gallop, or rubs. Extremities: No deformities, edema, skin discoloration, clubbing or cyanosis. Good capillary refill. ASSESSMENT/PLAN: 1. Chronic tension-type headache, not intractable - ICD9: 339.12, ICD10: G44.229 (primary diagnosis) resolved 2. Attention deficit hyperactivity disorder (ADHD), predominantly inattentive type - ICD9: 314.00, ICD10: F90.0 Cont the current medication Mary Merida MD documented in this encounter [facility] 11-08-2021 Miscellaneous Notes Pt called and is notified of providers message and instructions. Pt voices understanding. Erinn Rasmussen RN Patient with large amounts of diarrhea 2 days ago. Would not take anything for constipation at this time. Can take an over the counter probiotic. Please let us know if she does not have a bowel movement in the next few days. Thank you Carolyn Denney APRN.CNP Patient notified, states feeling some improvement but now is constipated, asking if she should be given something or take something OTC? Please advise Please let patient know that her urine did not show any specific bacterial infection but was possibly contaminated. She was however positive for campylobacter. How is she feeling? Any improvement or change? The antibiotic I gave her would not cover campylobacter but often campylobacter runs its course and no specific treatment is necessary. Thank you Carolyn Denney APRN.CNP documented in this encounter [facility] 10-30-2021 Miscellaneous Notes PDMP website checked and validated. All prescriptions have been APPROPRIATELY filled. No suspicious activity was identified. 10/30/2021 by Carolyn Denney APRN.CNP Patient has been identified by name and date of : Yes Patient phones for refill(s): Requested Prescriptions Pending Prescriptions Disp Refills methylphenidate (RITALIN) 20 mg tablet 60 tablet 0 Sig: Take 1 tablet by mouth twice daily for 30 days. Date of last office visit in primary care: 10/25/2021 Last 2 Encounter Wt Readings: Date: Wt: 10/25/2021 83 kg (183 lb) 08/07/2021 81.3 kg (179 lb 3.2 oz) Previous labs/tests for medication: Not applicable Please advise. Thank you. Lisa Finn LPN documented in this encounter [facility] 10-25-2021 History of Presen t illness Narrative Reason for Visit Patient presents with: F/U 3 Month: C/O UTI Betzy Yip is a 31 year old female who presents here today for Above Complaints.. Health Maintenance DEPRESSION SCREENING HPI She is doing well with 20 mgs of ritalin in the morning, would like afternoon dose to be increased from 10 to 20 She sleeps well. Goes to bed at 9 and wakes up at 6. No issues sleeping and does not have to use sleep aids Also tried the anxiety medication and she did not like it. Todays bps is high today. We did let her know that ritalin can increase her blood pressure. She had a couple beers and did not eat. We discussed her ascvd risk and the need to get medication. She had some cramping in the abdomen, we did a dipstic and it was negative No problem-specific Assessment & Plan notes found for this encounter. PAST MEDICAL HISTORY Diagnosis Date Allergic rhinitis, cause unspecified 1999 Allergic rhinitis Attention deficit hyperactivity disorder (ADHD), predominantly inattentive type 11/09/2014 Chronic tension headaches 08/11/2009 Seasonal allergies 11/09/2014 Seizure (HCC) 02/14/2015 Smoker 11/09/2014 started at age 22 and smoke 2 a day. PAST SURGICAL HISTORY Procedure Laterality Date DELIVERY ONLY TONSILLECTOMY PRIMARY/SECONDARY <AGE 14 2006 Tonsillectomy FAMILY HISTORY Problem Relation Age of Onset Headache Mother Psychiatry Mother Thyroid Mother Allergies Father Alcohol/Drug Maternal Grandmother Arthritis Maternal Grandmother Psychiatry Maternal Grandfather Diabetes Paternal Grandmother Cancer Paternal Grandmother lung Coronary Artery Disease Paternal Grandfather Heart Paternal Grandfather Ischemic Heart Disease Paternal Grandfather Asthma Son Social History Tobacco Use Smoking status: Former Years: 1.00 Types: Cigarettes Smokeless tobacco: Never Tobacco comments: smokes a pack of cigarettes a month Vaping Use Vaping Use: current everyday user Substances: Nicotine Devices: Pre-filled or refillable cartridge Substance Use Topics Alcohol use: Yes Comment: occasionally Drug use: No Past medical history, appointments, medications, allergies reviewed. Pertinent Lab/Diagnostic Studies are reviewed and discussed today Current Outpatient Medications: methylphenidate (RITALIN) 10 mg tablet etonogestrel (NEXPLANON) subdermal implant 68 mg FLUoxetine (PROZAC) 10 mg capsule Etonogestrel-Ethinyl Estradiol (NUVARING) 0.12-0.015 mg/24 hr vaginal ring polyethylene glycol 3350 (MIRALAX, GLYCOLAX) 17 gram/dose powder Bisacodyl (DULCOLAX) 5 mg tab omeprazole (PRILOSEC) 20 mg capsule etonogestrel subdermal implant 68 mg (NEXPLANON) Review of Systems CONSTITUTIONAL: No fevers, chills night sweats, unintended weight loss CARDIOVASCULAR: No chest pain, dyspnea, palpitations, orthopnea, PND, ankle edema. PULM: No dyspnea, unexplained cough. GI: No dysphagia/odynophagia, problematic reflux, constipation, diarrhea, changes in stool habits, hematochezia, melena. : No new urinary complaints, including dysuria, gross hematuria or pyuria. NEURO: No new balance problems, peripheral weakness/paresthesias or numbness of concern. Physical Exam BP 136/94 Pulse 104 Resp 16 Wt 83 kg (183 lb) LMP 03/20/2021 (Exact Date) SpO2 96% BMI 32.42 kg/m General appearance: Well appearing, alert, in no acute distress, well nourished. Skin: Skin color, texture, turgor normal, no suspicious rashes or lesions Head: Normocephalic, no masses, lesions, tenderness or abnormalities Eyes: Anicteric sclera. Pupils are equally round and reactive to light. Extraocular movements are intact. Lungs: Lungs clear to auscultation. No wheezing, rhonchi, rales Heart: RRR without murmur, gallop, or rubs. Extremities: No deformities, edema, skin discoloration, clubbing or cyanosis. Good capillary refill. ASSESSMENT/PLAN: 1. Urinary tract infection without hematuria, site unspecified - ICD9: 599.0, ICD10: N39.0 (primary diagnosis) - UA DIP B/O 2. Attention deficit hyperactivity disorder (ADHD), predominantly inattentive type - ICD9: 314.00, ICD10: F90.0 Increased the methyphenidate for the patient - METHYLPHENIDATE 20 MG TABLET 3. Elevated BP without diagnosis of hypertension - ICD9: 796.2, ICD10: R03.0 Repeat bp was normal but we are rechecking in a months time - Encouraged dietary sodium restriction/DASH diet - Recommended regular aerobic exercise. - Recommend home blood pressure monitoring, to bring results in on next visit - Goal of BP <130/80 Mary Merida MD documented in this encounter [facility] 08-30-2021 Miscellaneous Notes PDMP website checked and validated. All prescriptions have been APPROPRIATELY filled. No suspicious activity was identified. 08/30/2021 by Carolyn Denney APRN.ELI RICK: 07/19/2021 Last refill: 08/02/2021 QTY: 90 Refills: 0 Patient's request for medication is as follows: Pending Prescriptions Disp Refills METHYLPHENIDATE 10 MG TABLET 90 tablet 0 Sig: Take 2 tablets in AM to equal 20mg and 1 tablet in PM ZAY Class: C-II CAREY: No Please approve the above prescription(s) to electronically send to pharmacy. Augustus Jarrett Ma documented in this encounter [facility] 08-07-2021 History of Presen t illness Narrative Betzy Yip is a 31 year old female who presents with chest pressure and shortness of breath, onset today. Patient states it feels like something sitting on her chest. She denies any recent sick symptoms, no cough, fever, URI symptoms. She is referred to ER for further evaluation, cannot exclude cardiac pathology in [facility]. Sera Rondon APRN.ELI documented in this encounter [facility] 07-31-2021 Miscellaneous Notes Patient has been identified by name and date of : Yes Patient phones for refill(s): Pending Prescriptions Disp Refills METHYLPHENIDATE 10 MG TABLET 90 tablet 0 Sig: Take 2 tablets in AM to equal 20mg and 1 tablet in PM ZAY Class: C-II CAREY: No Date of last office visit in primary care: 07/19/21 Last 2 Encounter Wt Readings: Date: Wt: 07/19/2021 81.2 kg (179 lb) 04/12/2021 80.3 kg (177 lb) Previous labs/tests for medication: Not applicable Please advise. Thank you. Lisa Finn LPN documented in this encounter [facility] 07-19-2021 History of Presen t illness Narrative Reason for Visit Patient presents with: Established Patient: physical Betzy Yip is a 31 year old female who presents here today for CPE. Health Maintenance There are no preventive care reminders to display for this patient. HPI Diet- no bf, lunch is left overs. Dinner- meat, vegetables and making asparagus with pork chops... Dinner is usually a protein, veggie and a side. Sleep- she is getting around 8.5 hours of sleep Stress- stress is getting better right now. As work is picking up Exercise- she is trying to get motivated to exercise Better does not do much right now. Depression: feels like life is blah, wakes up in the morning and feels like she wants to go back to bed She does not know if snores. Tired in the day time and sleepy a lot. Sleeping in the cough and waiting rooms,. She works a lot, has 2 kids, 13, 9 years old. Its a lot of work, because she does everything herself. She is really stressed with plans going awry recently for the summer with kids, they were not supposed to be with her. Does not feel like running, she barely drinks any ,more. She still enjoys doing the things she liked but been stressed. Realized she is a binge drinker and can drink a 12 pack a night. Admits to obssesing over things , she had been like this her whole life. No problem-specific Assessment & Plan notes found for this encounter. PAST MEDICAL HISTORY Diagnosis Date Allergic rhinitis, cause unspecified 1999 Allergic rhinitis Attention deficit hyperactivity disorder (ADHD), predominantly inattentive type 11/09/2014 Chronic tension headaches 08/11/2009 Seasonal allergies 11/09/2014 Seizure (HCC) 02/14/2015 Smoker 11/09/2014 started at age 22 and smoke 2 a day. PAST SURGICAL HISTORY Procedure Laterality Date DELIVERY ONLY TONSILLECTOMY PRIMARY/SECONDARY <AGE 14 2006 Tonsillectomy FAMILY HISTORY Problem Relation Age of Onset Headache Mother Psychiatry Mother Thyroid Mother Allergies Father Alcohol/Drug Maternal Grandmother Arthritis Maternal Grandmother Psychiatry Maternal Grandfather Diabetes Paternal Grandmother Cancer Paternal Grandmother lung Coronary Artery Disease Paternal Grandfather Heart Paternal Grandfather Ischemic Heart Disease Paternal Grandfather Asthma Son Social History Tobacco Use Smoking status: Former Smoker Years: 1.00 Types: Cigarettes Smokeless tobacco: Never Used Tobacco comment: smokes a pack of cigarettes a month Vaping Use Vaping Use: current everyday user Substances: Nicotine Devices: Pre-filled or refillable cartridge Substance Use Topics Alcohol use: Yes Comment: occasionally Drug use: No Past medical history, appointments, medications, allergies reviewed. Pertinent Lab/Diagnostic Studies are reviewed and discussed today Current Outpatient Medications: methylphenidate (RITALIN) 10 mg tablet etonogestrel (NEXPLANON) subdermal implant 68 mg Etonogestrel-Ethinyl Estradiol (NUVARING) 0.12-0.015 mg/24 hr vaginal ring polyethylene glycol 3350 (MIRALAX, GLYCOLAX) 17 gram/dose powder Bisacodyl (DULCOLAX) 5 mg tab omeprazole (PRILOSEC) 20 mg capsule etonogestrel subdermal implant 68 mg (NEXPLANON) Review of Systems CONSTITUTIONAL: No fevers, chills, nightsweats, unintended weight loss HEENT: Denies frequent or severe heaches, nasal congestion/sinus symptoms, problematic allergy problems. EYES: No diplopia or blurry vision. CARDIOVASCULAR: No chest pain, dyspnea, palpitations, orthopnea, PND, ankle edema. PULM: No dyspnea, unexplained cough. GI: No dysphagia/odynophagia, problematic reflux, constipation, diarrhea, changes in stool habits, hematochezia, melena. : No new urinary complaints, including dysuria, gross hematuria or pyuria. NEURO: No new balance problems, peripheral weakness/paresthesias or numbness of concern. MUSC-SKEL: No new joint pain, swelling, or erythema. PSY: No concerns regarding depression, anxiety or panic. INTEGUMENTARY: No new skin changes (rash, new or changing mole, new growth) Physical Exam BP 122/70 (BP Site: Left Arm, BP Position: Sitting, BP Cuff Size: Large Adult) Pulse 107 Temp 36.6 C (97.8 F) Resp 12 Ht 160 cm (5' 3 ) Wt 81.2 kg (179 lb) LMP 03/20/2021 (Exact Date) SpO2 95% BMI 31.71 kg/m General appearance: Well appearing, alert, in no acute distress, well-hydrated, well nourished. Skin: full skin has freckles , face back arms etc. Head: Normocephalic, no masses, lesions, tenderness or abnormalities Eyes: Anicteric sclera. Pupils are equally round and reactive to light. Extraocular movements are intact. Ears: External ears normal, canals clear Nose/Sinuses: Nares normal, septum midline, mucosa normal, no drainage or sinus tenderness Oropharynx: Lips, mucosa, and tongue normal, teeth and gums normal, oropharynx normal Neck: Supple, no adenopathy; thyroid symmetric, normal size, no bruits Back: Normal exam Lungs: Lungs clear to auscultation. No wheezing, rhonchi, rales Heart: RRR without murmur, gallop, or rubs. No ectopy Abdomen: Normal abdominal exam, Abdomen soft, non-tender. Bowel sounds normal. No masses, organomegaly Extremities: No deformities, edema, skin discoloration, clubbing or cyanosis. Good capillary refill. Musculoskeletal: No joint swelling, deformity, or tenderness Peripheral pulses: Normal Neuro: Gait normal. Reflexes normal and symmetric. Sensation grossly intact. ASSESSMENT/PLAN: 1. Annual physical exam - ICD9: V70.0, ICD10: Z00.00 (primary diagnosis) - Counseled on healthy diet and regular exercise - Calcium intake with supplements or by diet of 1000 mg/day for under 50, 0649-4878 mg/day for 50+ 2. Attention deficit hyperactivity disorder (ADHD), predominantly inattentive type - ICD9: 314.00, ICD10: F90.0 Cont the ritalin it works well for her 3. Anxiety and depression - ICD9: 300.00, 311, ICD10: F41.9, F32.A Starting her on ssri. Discussed SSRI's in detail, their side effects including weight gain in some, sexual side effects, that it needs to build up in their system and usually in the 3rd week they will start feeling the effects. Also discussed that each SSRI may affect differently , might have to try a couple before finding out a perfect fit. 4. Alcohol consumption binge drinking - ICD9: 305.00, ICD10: F10.10 We discussed not to drink more than 4 drinks at a time. 5. Smoker - ICD9: 305.1, ICD10: F17.200 - Cessation encouraged. - Physiologic and physical aspects of tobacco addiction as well as strategies for quitting were discussed. - Counseling was given focusing on the harmful effects of this addiction especially given the patient's medical condition(s) which will be worsened because of the chemicals in tobacco. 6. Obesity (BMI 30.0-34.9) - ICD9: 278.00, ICD10: E66.9 Stable - Continue current medications Mary Merida MD documented in this encounter [facility] 06-30-2021 Miscellaneous Notes PDMP website checked and validated. All prescriptions have been APPROPRIATELY filled. No suspicious activity was identified. 06/30/2021 by Carolyn Denney APRN.CNP Patient has been identified by name and date of : Yes Patient phones for refill(s): Pending Prescriptions Disp Refills METHYLPHENIDATE 10 MG TABLET 90 tablet 0 Sig: Take 2 tablets in AM to equal 20mg and 1 tablet in PM ZAY Class: C-II CAREY: No Date of last office visit in primary care: 04/12/21 Last 2 Encounter Wt Readings: Date: Wt: 04/12/2021 80.3 kg (177 lb) 04/07/2021 79.4 kg (175 lb) Previous labs/tests for medication: Not applicable Please advise. Thank you. Gely Chapman Ma documented in this encounter [facility] 05-29-2021 Miscellaneous Notes PDMP website checked and validated. All prescriptions have been APPROPRIATELY filled. No suspicious activity was identified. 05/29/2021 by Carolyn Older, RN CHILD.SPECIAL TECHNICAL OPERATIONS OFFICER RICK: 04/12/2021 Last refill: 05/01/2021 QTY: 90 Refills: 0 documented in this encounter [facility] 05-29-2021 Miscellaneous Notes In regards to Rx request for Methylphenidate documented in this encounter [facility] 04-05-2021 Miscellaneous Notes Canceled and not rescheduled. Rescheduled 01/23/21. Patient is scheduled at [facility] on 12/05/[address] Galvin for a colonoscopy and EGD. DX: Diarrhea, unspecified type [R19.7] Heartburn [R12] Change in bowel habits [R19.4] Bloating [R14.0] Verbal and written instructions given. TR SURGICAL PHONE NOTE Date of Procedure/Surgery: 12/05/20 Procedure/Surgery Type: EGD COLONOSCOPY SEDATION:Conscious Sedation Location of Planned Procedure/Surgery: [facility] Surgery/Procedure Ordered: Yes COVID Testing Required: (FOR MAC CASES AND ASC PROCEDURES OTHER THAN COLON AND EGD): No Pre-Op Clearance Needed: No Prep Ordered:Yes: MIRALAX/DULCOLAX Prep Instructions given:Yes: Given in the office. Referral Completed:PAVE to complete. Patient Diabetic:No. Medication Considerations: Patient on blood Thinners: No Any other meds that need to be held: No Pacemaker or Defibrillator:No Patient/Family Informed of above information and given directions regarding location/arrival: Yes: Patient Transportation Considerations: No Other Important Information: Yes - History of seizures but not taking medication for these currently Any physical limitations: No Any cognitive limitations: No Collar Sewer/Remediation Consultant required: No Communication Limitations: No documented in this encounter [facility] documented as of this encounter (statuses as of 05/29/2021) [facility]09-18-2012 History of Past illness Narrative* Problem Noted Date Resolved Date Twin , antepartum 10/30/201101/15 Overview: dichorionic/diamnioitic Supervision of other high-risk (V23.89) 10/30/2011 01/16/2012 Overview: RR- PNRA done November 27, 2011 tdap and flu vaccine given Bleeding in early 09/25/201106/2011 Overview: 09/25/2011 Patient is 3 para 0 with a history of 2 miscarriages that were evaluated by [facility]. Patient states she had heavy dark red to brown bleeding on September 24, 2011. She denies any intercourse prior to the bleeding. She did note some clotting during that time. She denies any cramping or pain at that time. She denies any bleeding since September 23. Discussed with Dr. Tee. HCG ordered today by Dr. Tee that was positive. Patient has an appointment at [address] Tee. with uncertain dates 09/25/2011 0 10/30/2011 Overview: 09/25/2011Patient states she has irregular menses every 56-150 days. She states her last menstrual period was sometime in March. She a positive test mid August 2011. She denies feeling any movement at this time. She states her clothing is not tight. documented as of this encounter (statuses as of 05/29/2021) [facility] History of Past illness Narrative* Problem Noted Date Resolved Date Twin , antepartum 10/30/201101/15 Overview: dichorionic/diamnioitic Supervision of other high-risk (V23.89) 10/30/2011 01/16/2012 Overview: RR- PNRA done November 27, 2011 tdap and flu vaccine given Bleeding in early 09/25/201106/2011 Overview: 09/25/2011 Patient is 3 para 0 with a history of 2 miscarriages that were evaluated by [facility]. Patient states she had heavy dark red to brown bleeding on September 24, 2011. She denies any intercourse prior to the bleeding. She did note some clotting during that time. She denies any cramping or pain at that time. She denies any bleeding since September 23. Discussed with Dr. Tee. HCG ordered today by Dr. Tee that was positive. Patient has an appointment at [address] Tee. with uncertain dates 09/25/2011 0 10/30/2011 Overview: 09/25/2011Patient states she has irregular menses every 56-150 days. She states her last menstrual period was sometime in March. She a positive test mid August 2011. She denies feeling any movement at this time. She states her clothing is not tight. 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 Patient states she had heavy dark red to brown bleeding on September 24, 2011. She denies any intercourse prior to the bleeding. She did note some clotting during that time. She denies any cramping or pain at that time. She denies any bleeding since September 23. Discussed with Dr. Tee. HCG ordered today by Dr. Tee that was positive. Patient has an appointment at [address] Tee. with uncertain dates 09/25/2011 0 10/30/2011 Overview: 09/25/2011Patient states she has irregular menses every 56-150 days. She states her last menstrual period was sometime in March. She a positive test mid August 2011. She denies feeling any movement at this time. She states her clothing is not tight. 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 Patient states she had heavy dark red to brown bleeding on September 24, 2011. She denies any intercourse prior to the bleeding. She did note some clotting during that time. She denies any cramping or pain at that time. She denies any bleeding since September 23. Discussed with Dr. Tee. HCG ordered today by Dr. Tee that was positive. Patient has an appointment at [address] Tee. with uncertain dates 09/25/2011 0 10/30/2011 Overview: 09/25/2011Patient states she has irregular menses every 56-150 days. She states her last menstrual period was sometime in March. She a positive test mid August 2011. She denies feeling any movement at this time. She states her clothing is not tight. 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 Patient states she had heavy dark red to brown bleeding on September 24, 2011. She denies any intercourse prior to the bleeding. She did note some clotting during that time. She denies any cramping or pain at that time. She denies any bleeding since September 23. Discussed with Dr. Tee. HCG ordered today by Dr. Tee that was positive. Patient has an appointment at [address] Tee. with uncertain dates 09/25/2011 0 10/30/2011 Overview: 09/25/2011Patient states she has irregular menses every 56-150 days. She states her last menstrual period was sometime in March. She a positive test mid August 2011. She denies feeling any movement at this time. She states her clothing is not tight. 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 Patient states she had heavy dark red to brown bleeding on September 24, 2011. She denies any intercourse prior to the bleeding. She did note some clotting during that time. She denies any cramping or pain at that time. She denies any bleeding since September 23. Discussed with Dr. Tee. HCG ordered today by Dr. Tee that was positive. Patient has an appointment at [address] Tee. with uncertain dates 09/25/2011 0 10/30/2011 Overview: 09/25/2011Patient states she has irregular menses every 56-150 days. She states her last menstrual period was sometime in March. She a positive test mid August 2011. She denies feeling any movement at this time. She states her clothing is not tight. 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 Patient states she had heavy dark red to brown bleeding on September 24, 2011. She denies any intercourse prior to the bleeding. She did note some clotting during that time. She denies any cramping or pain at that time. She denies any bleeding since September 23. Discussed with Dr. Tee. HCG ordered today by Dr. Tee that was positive. Patient has an appointment at [address] Tee. with uncertain dates 09/25/2011 0 10/30/2011 Overview: 09/25/2011Patient states she has irregular menses every 56-150 days. She states her last menstrual period was sometime in March. She a positive test mid August 2011. She denies feeling any movement at this time. She states her clothing is not tight. 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 Patient states she had heavy dark red to brown bleeding on September 24, 2011. She denies any intercourse prior to the bleeding. She did note some clotting during that time. She denies any cramping or pain at that time. She denies any bleeding since September 23. Discussed with Dr. Tee. HCG ordered today by Dr. Tee that was positive. Patient has an appointment at [address] Tee. with uncertain dates 09/25/2011 0 10/30/2011 Overview: 09/25/2011Patient states she has irregular menses every 56-150 days. She states her last menstrual period was sometime in March. She a positive test mid August 2011. She denies feeling any movement at this time. She states her clothing is not tight. 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 Patient states she had heavy dark red to brown bleeding on September 24, 2011. She denies any intercourse prior to the bleeding. She did note some clotting during that time. She denies any cramping or pain at that time. She denies any bleeding since September 23. Discussed with Dr. Tee. HCG ordered today by Dr. Tee that was positive. Patient has an appointment at [address] Tee. with uncertain dates 09/25/2011 0 10/30/2011 Overview: 09/25/2011Patient states she has irregular menses every 56-150 days. She states her last menstrual period was sometime in March. She a positive test mid August 2011. She denies feeling any movement at this time. She states her clothing is not tight. 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 Patient states she had heavy dark red to brown bleeding on September 24, 2011. She denies any intercourse prior to the bleeding. She did note some clotting during that time. She denies any cramping or pain at that time. She denies any bleeding since September 23. Discussed with Dr. Tee. HCG ordered today by Dr. Tee that was positive. Patient has an appointment at [address] Tee. with uncertain dates 09/25/2011 0 10/30/2011 Overview: 09/25/2011Patient states she has irregular menses every 56-150 days. She states her last menstrual period was sometime in March. She a positive test mid August 2011. She denies feeling any movement at this time. She states her clothing is not tight. 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 Patient states she had heavy dark red to brown bleeding on September 24, 2011. She denies any intercourse prior to the bleeding. She did note some clotting during that time. She denies any cramping or pain at that time. She denies any bleeding since September 23. Discussed with Dr. Tee. HCG ordered today by Dr. Tee that was positive. Patient has an appointment at [address] Tee. with uncertain dates 09/25/2011 0 10/30/2011 Overview: 09/25/2011Patient states she has irregular menses every 56-150 days. She states her last menstrual period was sometime in March. She a positive test mid August 2011. She denies feeling any movement at this time. She states her clothing is not tight. 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 Patient states she had heavy dark red to brown bleeding on September 24, 2011. She denies any intercourse prior to the bleeding. She did note some clotting during that time. She denies any cramping or pain at that time. She denies any bleeding since September 23. Discussed with Dr. Tee. HCG ordered today by Dr. Tee that was positive. Patient has an appointment at [address] Tee. with uncertain dates 09/25/2011 0 10/30/2011 Overview: 09/25/2011Patient states she has irregular menses every 56-150 days. She states her last menstrual period was sometime in March. She a positive test mid August 2011. She denies feeling any movement at this time. She states her clothing is not tight. 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 Patient states she had heavy dark red to brown bleeding on September 24, 2011. She denies any intercourse prior to the bleeding. She did note some clotting during that time. She denies any cramping or pain at that time. She denies any bleeding since September 23. Discussed with Dr. Tee. HCG ordered today by Dr. Tee that was positive. Patient has an appointment at [address] Tee. with uncertain dates 09/25/2011 0 10/30/2011 Overview: 09/25/2011Patient states she has irregular menses every 56-150 days. She states her last menstrual period was sometime in March. She a positive test mid August 2011. She denies feeling any movement at this time. She states her clothing is not tight. 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 Patient states she had heavy dark red to brown bleeding on September 24, 2011. She denies any intercourse prior to the bleeding. She did note some clotting during that time. She denies any cramping or pain at that time. She denies any bleeding since September 23. Discussed with Dr. Tee. HCG ordered today by Dr. Tee that was positive. Patient has an appointment at [address] Tee. with uncertain dates 09/25/2011 0 10/30/2011 Overview: 09/25/2011Patient states she has irregular menses every 56-150 days. She states her last menstrual period was sometime in March. She a positive test mid August 2011. She denies feeling any movement at this time. She states her clothing is not tight. 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 Patient states she had heavy dark red to brown bleeding on September 24, 2011. She denies any intercourse prior to the bleeding. She did note some clotting during that time. She denies any cramping or pain at that time. She denies any bleeding since September 23. Discussed with Dr. Tee. HCG ordered today by Dr. Tee that was positive. Patient has an appointment at [address] Tee. with uncertain dates 09/25/2011 0 10/30/2011 Overview: 09/25/2011Patient states she has irregular menses every 56-150 days. She states her last menstrual period was sometime in March. She a positive test mid August 2011. She denies feeling any movement at this time. She states her clothing is not tight. 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 Patient states she had heavy dark red to brown bleeding on September 24, 2011. She denies any intercourse prior to the bleeding. She did note some clotting during that time. She denies any cramping or pain at that time. She denies any bleeding since September 23. Discussed with Dr. Tee. HCG ordered today by Dr. Tee that was positive. Patient has an appointment at [address] Tee. with uncertain dates 09/25/2011 0 10/30/2011 Overview: 09/25/2011Patient states she has irregular menses every 56-150 days. She states her last menstrual period was sometime in March. She a positive test mid August 2011. She denies feeling any movement at this time. She states her clothing is not tight. 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 Patient states she had heavy dark red to brown bleeding on September 24, 2011. She denies any intercourse prior to the bleeding. She did note some clotting during that time. She denies any cramping or pain at that time. She denies any bleeding since September 23. Discussed with Dr. Tee. HCG ordered today by Dr. Tee that was positive. Patient has an appointment at [address] Tee. with uncertain dates 09/25/2011 0 10/30/2011 Overview: 09/25/2011Patient states she has irregular menses every 56-150 days. She states her last menstrual period was sometime in March. She a positive test mid August 2011. She denies feeling any movement at this time. She states her clothing is not tight. 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 Patient states she had heavy dark red to brown bleeding on September 24, 2011. She denies any intercourse prior to the bleeding. She did note some clotting during that time. She denies any cramping or pain at that time. She denies any bleeding since September 23. Discussed with Dr. Tee. HCG ordered today by Dr. Tee that was positive. Patient has an appointment at [address] Tee. with uncertain dates 09/25/2011 10/30/2011 Overview: 09/25/2011Patient states she has irregular menses every 56-150 days. She states her last menstrual period was sometime in March. She a positive test mid August 2011. She denies feeling any movement at this time. She states her clothing is not tight. 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 Patient states she had heavy dark red to brown bleeding on September 24, 2011. She denies any intercourse prior to the bleeding. She did note some clotting during that time. She denies any cramping or pain at that time. She denies any bleeding since September 23. Discussed with Dr. Tee. HCG ordered today by Dr. Tee that was positive. Patient has an appointment at [address] Tee. with uncertain dates 09/25/2011 10/30/2011 Overview: 09/25/2011Patient states she has irregular menses every 56-150 days. She states her last menstrual period was sometime in March. She a positive test mid August 2011. She denies feeling any movement at this time. She states her clothing is not tight. 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 Patient states she had heavy dark red to brown bleeding on September 24, 2011. She denies any intercourse prior to the bleeding. She did note some clotting during that time. She denies any cramping or pain at that time. She denies any bleeding since September 23. Discussed with Dr. Tee. HCG ordered today by Dr. Tee that was positive. Patient has an appointment at [address] Tee. with uncertain dates 09/25/2011 10/30/2011 Overview: 09/25/2011Patient states she has irregular menses every 56-150 days. She states her last menstrual period was sometime in March. She a positive test mid August 2011. She denies feeling any movement at this time. She states her clothing is not tight. 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 Patient states she had heavy dark red to brown bleeding on September 24, 2011. She denies any intercourse prior to the bleeding. She did note some clotting during that time. She denies any cramping or pain at that time. She denies any bleeding since September 23. Discussed with Dr. Tee. HCG ordered today by Dr. Tee that was positive. Patient has an appointment at [address] Tee. with uncertain dates 09/25/2011 10/30/2011 Overview: 09/25/2011Patient states she has irregular menses every 56-150 days. She states her last menstrual period was sometime in March. She a positive test mid August 2011. She denies feeling any movement at this time. She states her clothing is not tight. 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 Patient states she had heavy dark red to brown bleeding on September 24, 2011. She denies any intercourse prior to the bleeding. She did note some clotting during that time. She denies any cramping or pain at that time. She denies any bleeding since September 23. Discussed with Dr. Tee. HCG ordered today by Dr. Tee that was positive. Patient has an appointment at [address] Tee. with uncertain dates 09/25/2011 10/30/2011 Overview: 09/25/2011Patient states she has irregular menses every 56-150 days. She states her last menstrual period was sometime in March. She a positive test mid August 2011. She denies feeling any movement at this time. She states her clothing is not tight. documented as of this encounter (statuses as of 10/23/2022) [facility] History of Past illness Narrative* Problem Noted Date Diagnosed Date Resolved Date Twin , antepartum 10/30/2011 1 03/18/2011 Overview: dichorionic/diamnioitic Supervision of other high-ri sk (V23.89) 10/30/2011 01/16/2012 Overview: RR- PNRA done November 27, 2011 tdap and flu vaccine given Bleeding in early 09/25/2011 01/16/2012 Overview: 09/25/2011 Patient is 3 para 0 with a history of 2 miscarriages that were evaluated by [facility]. Patient states she had heavy dark red to brown bleeding on September 24, 2011. She denies any intercourse prior to the bleeding. She did note some clotting during that time. She denies any cramping or pain at that time. She denies any bleeding since September 23. Discussed with Dr. Tee. HCG ordered today by Dr. Tee that was positive. Patient has an appointment at [address] Tee. with uncertain dates 09/25/2011 10/30/2011 Overview: 09/25/2011Patient states she has irregular menses every 56-150 days. She states her last menstrual period was sometime in March. She a positive test mid August 2011. She denies feeling any movement at this time. She states her clothing is not tight. documented as of this encounter (statuses as of 11/21/2022) [facility] History of Past illness Narrative* Problem Noted Date Diagnosed Date Resolved Date Twin , antepartum 10/30/2011 1 03/18/2011 Overview: dichorionic/diamnioitic Supervision of other high-ri sk (V23.89) 10/30/2011 01/16/2012 Overview: RR- PNRA done November 27, 2011 tdap and flu vaccine given Bleeding in early 09/25/2011 01/16/2012 Overview: 09/25/2011 Patient is 3 para 0 with a history of 2 miscarriages that were evaluated by [facility]. Patient states she had heavy dark red to brown bleeding on September 24, 2011. She denies any intercourse prior to the bleeding. She did note some clotting during that time. She denies any cramping or pain at that time. She denies any bleeding since September 23. Discussed with Dr. Tee. HCG ordered today by Dr. Tee that was positive. Patient has an appointment at [address] Tee. with uncertain dates 09/25/2011 10/30/2011 Overview: 09/25/2011Patient states she has irregular menses every 56-150 days. She states her last menstrual period was sometime in March. She a positive test mid August 2011. She denies feeling any movement at this time. She states her clothing is not tight. documented as of this encounter (statuses as of 12/25/2022) [facility] History of Past illness Narrative* Problem Noted Date Diagnosed Date Resolved Date Twin , antepartum 10/30/2011 1 03/18/2011 Overview: dichorionic/diamnioitic Supervision of other high-ri (V23.89) 10/30/2011 01/16/2012 Overview: RR- PNRA done November 27, 2011 tdap and flu vaccine given Bleeding in early 09/25/2011 01/16/2012 Overview: 09/25/2011 Patient is 3 para 0 with a history of 2 miscarriages that were evaluated by [facility]. Patient states she had heavy dark red to brown bleeding on September 24, 2011. She denies any intercourse prior to the bleeding. She did note some clotting during that time. She denies any cramping or pain at that time. She denies any bleeding since September 23. Discussed with Dr. Tee. HCG ordered today by Dr. Tee that was positive. Patient has an appointment at [address] Tee. with uncertain dates 09/25/2011 10/30/2011 Overview: 09/25/2011Patient states she has irregular menses every 56-150 days. She states her last menstrual period was sometime in March. She a positive test mid August 2011. She denies feeling any movement at this time. She states her clothing is not tight. documented as of this encounter (statuses as of 01/22/2023) [facility] History of Past illness Narrative* Problem Noted Date Diagnosed Date Resolved Date Twin , antepartum 10/30/2011 1 03/18/2011 Overview: dichorionic/diamnioitic Supervision of other high-ri sk (V23.89) 10/30/2011 01/16/2012 Overview: RR- PNRA done November 27, 2011 tdap and flu vaccine given Bleeding in early 09/25/2011 01/16/2012 Overview: 09/25/2011 Patient is 3 para 0 with a history of 2 miscarriages that were evaluated by [facility]. Patient states she had heavy dark red to brown bleeding on September 24, 2011. She denies any intercourse prior to the bleeding. She did note some clotting during that time. She denies any cramping or pain at that time. She denies any bleeding since September 23. Discussed with Dr. Tee. HCG ordered today by Dr. Tee that was positive. Patient has an appointment at [address] Tee. with uncertain dates 09/25/2011 10/30/2011 Overview: 09/25/2011Patient states she has irregular menses every 56-150 days. She states her last menstrual period was sometime in March. She a positive test mid August 2011. She denies feeling any movement at this time. She states her clothing is not tight. documented as of this encounter (statuses as of 01/22/2023) [facility]09[facility] History of Past illness Narrative* Problem Noted Date Diagnosed Date Resolved Date Twin , antepartum 10/30/2011 1 03/18/2011 Overview: dichorionic/diamnioitic Supervision of other high-ri (V23.89) 10/30/2011 01/16/2012 Overview: RR- PNRA done November 27, 2011 tdap and flu vaccine given Bleeding in early 09/25/2011 01/16/2012 Overview: 09/25/2011 Patient is 3 para 0 with a history of 2 miscarriages that were evaluated by [facility]. Patient states she had heavy dark red to brown bleeding on September 24, 2011. She denies any intercourse prior to the bleeding. She did note some clotting during that time. She denies any cramping or pain at that time. She denies any bleeding since September 23. Discussed with Dr. Tee. HCG ordered today by Dr. Tee that was positive. Patient has an appointment at [address] Tee. with uncertain dates 09/25/2011 10/30/2011 Overview: 09/25/2011Patient states she has irregular menses every 56-150 days. She states her last menstrual period was sometime in March. She a positive test mid August 2011. She denies feeling any movement at this time. She states her clothing is not tight. documented as of this encounter (statuses as of 03/25/2023) [facility] History of Past illness Narrative* Problem Noted Date Diagnosed Date Resolved Date Twin , antepartum 10/30/2011 1 03/18/2011 Overview: dichorionic/diamnioitic Supervision of other high-ri (V23.89) 10/30/2011 01/16/2012 Overview: RR- PNRA done November 27, 2011 tdap and flu vaccine given Bleeding in early 09/25/2011 01/16/2012 Overview: 09/25/2011 Patient is 3 para 0 with a history of 2 miscarriages that were evaluated by [facility]. Patient states she had heavy dark red to brown bleeding on September 24, 2011. She denies any intercourse prior to the bleeding. She did note some clotting during that time. She denies any cramping or pain at that time. She denies any bleeding since September 23. Discussed with Dr. Tee. HCG ordered today by Dr. Tee that was positive. Patient has an appointment at [address] Tee. with uncertain dates 09/25/2011 10/30/2011 Overview: 09/25/2011Patient states she has irregular menses every 56-150 days. She states her last menstrual period was sometime in March. She a positive test mid August 2011. She denies feeling any movement at this time. She states her clothing is not tight. documented as of this encounter (statuses as of 03/25/2023) [facility] Attention deficit hyperactivity disorder (ADHD), predominantly inattentive type [facility] Change in bowel habits- Primary Other symptoms involving digestive system Diarrhea, unspecified type Bloating Flatulence, eructation, and gas pain Heartburn [facility] Diagnosis Attention deficit hyperactivity disorder (ADHD), predominantly inattentive type [facility] Annual physical exam- Primary Routine general medical examination at a health care facility Attention deficit hyperactivity disorder (ADHD), predominantly inattentive type Anxiety and depression Dysthymic disorder Alcohol consumption binge drinking Alcohol abuse, unspecified Smoker Tobacco use disorder Obesity (BMI 30.0-34.9) Obesity, unspecified [facility] Diagnosis Attention deficit hyperactivity disorder (ADHD), predominantly inattentive type [facility] Diagnosis Chest pressure- Primary Other chest pain SOB (shortness of breath) Shortness of breath [facility] Diagnosis Attention deficit hyperactivity disorder (ADHD), predominantly inattentive type [facility] Diagnosis Urinary tract infection without hematuria, site unspecified- Primary Attention deficit hyperactivity disorder (ADHD), predominantly inattentive type Elevated BP without diagnosis of hypertension [facility] Diagnosis Attention deficit hyperactivity disorder (ADHD), predominantly inattentive type [facility] Diagnosis Chronic tension-type headache, not intractable- Primary Chronic tension type headache Attention deficit hyperactivity disorder (ADHD), predominantly inattentive type [facility] Diagnosis Attention deficit hyperactivity disorder (ADHD), predominantly inattentive type [facility] Diagnosis Attention deficit hyperactivity disorder (ADHD), predominantly inattentive type [facility] Diagnosis Seizure (HCC)- Primary Other convulsions Attention deficit hyperactivity disorder (ADHD), predominantly inattentive type Chronic tension-type headache, not intractable Chronic tension type headache Smoker Tobacco use disorder [facility] Diagnosis Attention deficit hyperactivity disorder (ADHD), predominantly inattentive type [facility] Diagnosis Attention deficit hyperactivity disorder (ADHD), predominantly inattentive type [facility] Diagnosis Attention deficit hyperactivity disorder (ADHD), predominantly inattentive type [facility] Diagnosis Attention deficit hyperactivity disorder (ADHD), predominantly inattentive type- Primary Hemorrhoids, unspecified hemorrhoid type Annual physical exam Routine general medical examination at [facility] Lipid screening Screening for lipoid disorders documented [facility] Diagnosis Attention deficit hyperactivity disorder (ADHD), predominantly inattentive type [facility] Diagnosis Attention deficit hyperactivity disorder (ADHD), predominantly inattentive type [facility] Diagnosis Attention deficit hyperactivity disorder (ADHD), predominantly inattentive type documented in this encounter [facility] Reason for Referral Specialty Diagnoses / Procedures Referred By Yudelka loera Referred To Contact Diagnoses Attention deficit hyperactivity disorder (ADHD), predominantly inattentive type Carolyn Denney APRN.CNP [address] [place] [address] Referral ID Status Reason Start Date Expiration Date V isits Requested Visits Authorized [id number] Pending Review 1 1 Specialty Diagnoses / Procedures Referred By Yudelka t Referred To Contact Diagnoses Attention deficit hyperactivity disorder (ADHD), predominantly inattentive type Mary Merida MD [address] [place] [address] Referral ID Status Reason Start Date Expiration Date Visits Re quested Visits Authorized [id number] Closed 1 1 Specialty Diagnoses / Procedures Referred By Contac t Referred To Contact Carolyn Denney APRN.SPECIAL TECHNICAL OPERATIONS OFFICER [address] [place] [address] Referral ID Status Reason Start Date Expiration Date Visits Re quested Visits Authorized [id number] Closed 1 1 Specialty Diagnoses / Procedures Referred By Contac t Referred To Contact General Surgery Diagnoses Hemorrhoids, unspecified hemorrhoid type Procedures CONSULT TO GENERAL SURGERY OFFICE/OUTPATIENT [facility] 60-74 MINUTES Carolyn Denney APRN.SPECIAL TECHNICAL OPERATIONS OFFICER [address] [place] [address] Referral ID Status Reason Start Date Expiration Date Visits Requested Visits Authorized [id number] Authorized PCP Requested Referral 09/27/2022 09/27/2023 1 1 Advance Directives Documents on File Type Date Recorded Patient Legal Service Specialist Expl anation Advance Directive(s) 11/24/2020 2:54 PM Documents on File Type Date Recorded Patient Legal Service Specialist Expl anation Advance Directive(s) 11/24/2020 2:54 PM Summary Purpose Family History No Family History Records Found Additional Source Comments Source Comments (unrecognize d section and content) In the event this informatio n is protected by the Federal Confidentiality of Alcohol and Drug Abuse Patient Records regulations: The Federal rules restrict any use of the information to criminally investigate or prosecute any alcohol or drug abuse patient.[facility] the event this information is protected by the Federal Confidentiality of Alcohol and Drug Abuse Patient Records regulations: The Federal rules restrict any use of the information to criminally investigate or prosecute any alcohol or drug abuse patient.[facility] the event this information is protected by the Federal Confidentiality of Alcohol and Drug Abuse Patient Records regulations: The Federal rules restrict any use of the information to criminally investigate or prosecute any alcohol or drug abuse patient.[facility] the event this information is protected by the Federal Confidentiality of Alcohol and Drug Abuse Patient Records regulations: The Federal rules restrict any use of the information to criminally investigate or prosecute any alcohol or drug abuse patient.[facility] the event this information is protected by the Federal Confidentiality of Alcohol and Drug Abuse Patient Records regulations: The Federal rules restrict any use of the information to criminally investigate or prosecute any alcohol or drug abuse patient.[facility] the event this information is protected by the Federal Confidentiality of Alcohol and Drug Abuse Patient Records regulations: The Federal rules restrict any use of the information to criminally investigate or prosecute any alcohol or drug abuse patient.[facility] Hospital[facility] the event this information is protected by the Federal Confidentiality of Alcohol and Drug Abuse Patient Records regulations: The Federal rules restrict any use of the information to criminally investigate or prosecute any alcohol or drug abuse patient.[facility] Hospital[facility] the event this information is protected by the Federal Confidentiality of Alcohol and Drug Abuse Patient Records regulations: The Federal rules restrict any use of the information to criminally investigate or prosecute any alcohol or drug abuse patient.[facility] HospitalIn the event this information is protected by the Federal Confidentiality of Alcohol and Drug Abuse Patient Records regulations: The Federal rules restrict any use of the information to criminally investigate or prosecute any alcohol or drug abuse patient.[facility] HospitalIn the event this information is protected by the Federal Confidentiality of Alcohol and Drug Abuse Patient Records regulations: The Federal rules restrict any use of the information to criminally investigate or prosecute any alcohol or drug abuse patient.[facility] HospitalIn the event this information is protected by the Federal Confidentiality of Alcohol and Drug Abuse Patient Records regulations: The Federal rules restrict any use of the information to criminally investigate or prosecute any alcohol or drug abuse patient.[facility] HospitalIn the event this information is protected by the Federal Confidentiality of Alcohol and Drug Abuse Patient Records regulations: The Federal rules restrict any use of the information to criminally investigate or prosecute any alcohol or drug abuse patient.[facility] HospitalIn the event this information is protected by the Federal Confidentiality of Alcohol and Drug Abuse Patient Records regulations: The Federal rules restrict any use of the information to criminally investigate or prosecute any alcohol or drug abuse patient.[facility] HospitalIn the event this information is protected by the Federal Confidentiality of Alcohol and Drug Abuse Patient Records regulations: The Federal rules restrict any use of the information to criminally investigate or prosecute any alcohol or drug abuse patient.[facility] HospitalIn the event this information is protected by the Federal Confidentiality of Alcohol and Drug Abuse Patient Records regulations: The Federal rules restrict any use of the information to criminally investigate or prosecute any alcohol or drug abuse patient.[facility] HospitalIn the event this information is protected by the Federal Confidentiality of Alcohol and Drug Abuse Patient Records regulations: The Federal rules restrict any use of the information to criminally investigate or prosecute any alcohol or drug abuse patient.[facility] HospitalIn the event this information is protected by the Federal Confidentiality of Alcohol and Drug Abuse Patient Records regulations: The Federal rules restrict any use of the information to criminally investigate or prosecute any alcohol or drug abuse patient.[facility] HospitalIn the event this information is protected by the Federal Confidentiality of Alcohol and Drug Abuse Patient Records regulations: The Federal rules restrict any use of the information to criminally investigate or prosecute any alcohol or drug abuse patient.[facility] HospitalIn the event this information is protected by the Federal Confidentiality of Alcohol and Drug Abuse Patient Records regulations: The Federal rules restrict any use of the information to criminally investigate or prosecute any alcohol or drug abuse patient.[facility] HospitalIn the event this information is protected by the Federal Confidentiality of Alcohol and Drug Abuse Patient Records regulations: The Federal rules restrict any use of the information to criminally investigate or prosecute any alcohol or drug abuse patient.[facility] HospitalIn the event this information is protected by the Federal Confidentiality of Alcohol and Drug Abuse Patient Records regulations: The Federal rules restrict any use of the information to criminally investigate or prosecute any alcohol or drug abuse patient.[facility] HospitalIn the event this information is protected by the Federal Confidentiality of Alcohol and Drug Abuse Patient Records regulations: The Federal rules restrict any use of the information to criminally investigate or prosecute any alcohol or drug abuse patient.[facility] HospitalIn the event this information is protected by the Federal Confidentiality of Alcohol and Drug Abuse Patient Records regulations: The Federal rules restrict any use of the information to criminally investigate or prosecute any alcohol or drug abuse patient.[facility] HospitalIn the event this information is protected by the Federal Confidentiality of Alcohol and Drug Abuse Patient Records regulations: The Federal rules restrict any use of the information to criminally investigate or prosecute any alcohol or drug abuse patient.[facility] HospitalIn the event this information is protected by the Federal Confidentiality of Alcohol and Drug Abuse Patient Records regulations: The Federal rules restrict any use of the information to criminally investigate or prosecute any alcohol or drug abuse patient.[facility] HospitalIn the event this information is protected by the Federal Confidentiality of Alcohol and Drug Abuse Patient Records regulations: The Federal rules restrict any use of the information to criminally investigate or prosecute any alcohol or drug abuse patient.[facility] HospitalIn the event this information is protected by the Federal Confidentiality of Alcohol and Drug Abuse Patient Records regulations: The Federal rules restrict any use of the information to criminally investigate or prosecute any alcohol or drug abuse patient.[facility] HospitalIn the event this information is protected by the Federal Confidentiality of Alcohol and Drug Abuse Patient Records regulations: The Federal rules restrict any use of the information to criminally investigate or prosecute any alcohol or drug abuse patient.[facility] HospitalIn the event this information is protected by the Federal Confidentiality of Alcohol and Drug Abuse Patient Records regulations: The Federal rules restrict any use of the information to criminally investigate or prosecute any alcohol or drug abuse patient.[facility] Reason for Visit (unrecogniz ed section and content) Reason Comments Procedure EGD and colonoscopy Reason Onset Date Comments Refill Request 06/30/2021 Reason Comments Established Patient physical Reason Onset Date Comments Refill Request 07/31/2021 Reason Comments Shortness of Breath loss of voice, chest congestion x today Reason Onset Date Comments Refill Request 08/28/2021 Reason Comments F/U 3 Month C/O UTI Reason Onset Date Comments Refill Request 10/29/2021 Reason Comments Results Reason Onset Date Comments Refill Request 11/24/2021 Reason Comments F/U 1 month Reason Onset Date Comments Refill Request 12/24/2021 Reason Onset Date Comments Refill Request 03/23/2022 Reason Onset Date Comments Refill Request 04/20/2022 Reason Comments Recheck Med check Reason Onset Date Comments Refill Request 06/20/2022 Reason Onset Date Comments Refill Request 08/19/2022 Reason Comments Medication Problem Reason Onset Date Comments Refill Request 09/20/2022 Reason Comments Recheck Medication follow up Reason Onset Date Comments Refill Request 10/21/2022 Reason Onset Date Comments Refill Request 11/20/2022 Reason Onset Date Comments Refill Request 12/23/2022 Reason Onset Date Comments Refill Request 01/21/2023 Reason Onset Date Comments Refill Request 03/24/2023 Care Teams (unrecognized sec tion and content) Patient Observer Relationship Specialty Start Date End Date Mary Merida MD [address] [place] [address] PCP - General Internal Medicine 11/25/20 Patient Observer Relationship Specialty Start Date End Date Mary Merida MD [address], [place] [id number] PCP - General Internal Medicine 09/14/20 11/23/20 Kory Walker APRN.[facility] [address] [place] [address] PCP - General Family Practice 11/24/20 11/24/20 Mary Merida MD [address] [place] [address] PCP - General Internal Medicine 11/25/20 Patient Observer Relationship Specialty Start Date End Date Mary Merida MD [address] [place] [address] PCP - General Internal Medicine 11/25/20 Patient Observer Relationship Specialty Start Date End Date Mary Merida MD [address] [place] [address] PCP - General Internal Medicine 11/25/20 Patient Observer Relationship Specialty Start Date End Date Mary Merida MD [address] [place] [address] PCP - General Internal Medicine 11/25/20 Patient Observer Relationship Specialty Start Date End Date Mary Merida MD [address] [place] [address] PCP - General Internal Medicine 11/25/20 Patient Observer Relationship Specialty Start Date End Date Mary Merida MD [address] [place] [address] PCP - General Internal Medicine 11/25/20 Patient Observer Relationship Specialty Start Date End Date Mary Merida MD [address] [place] [address] PCP - General Internal Medicine 11/25/20 Patient Observer Relationship Specialty Start Date End Date Mary Merida MD [address] [place] [address] PCP - General Internal Medicine 11/25/20 Patient Observer Relationship Specialty Start Date End Date Mary Merida MD [address] [place] [address] PCP - General Internal Medicine 11/25/20 Patient Observer Relationship Specialty Start Date End Date Mary Merida MD [address] [place] [address] PCP - General Internal Medicine 11/25/20 Patient Observer Relationship Specialty Start Date End Date Mary Merida MD [address] [place] [address] PCP - General Internal Medicine 11/25/20 Patient Observer Relationship Specialty Start Date End Date Mary Merida MD [address] [place] [address] PCP - General Internal Medicine 11/25/20 Patient Observer Relationship Specialty Start Date End Date Mary Merida MD [address] [place] [address] PCP - General Internal Medicine 11/25/20 Patient Observer Relationship Specialty Start Date End Date Mary Merida MD [address] [place] [address] PCP - General Internal Medicine 11/25/20 Patient Observer Relationship Specialty Start Date End Date Mary Merida MD [address] [place] [address] PCP - General Internal Medicine 11/25/20 Patient Observer Relationship Specialty Start Date End Date Mary Merida MD [address] [place] [address] PCP - General Internal Medicine 11/25/20 Patient Observer Relationship Specialty Start Date End Date Mary Merida MD [address] [place] [address] PCP - General Internal Medicine 11/25/20 INFORMATION SOURCE (unrecogn ized section and content) FOR RECORDS PERTAINING TO PATIENTS WHO ARE OR HAVE BEEN ENROLLED IN A CHEMICAL DEPENDENCY/SUBSTANCEABUSE PROGRAM, SOME INFORMATION MAY BE OMITTED. This clinical summary was aggregated from multiple sources. Caution should be exercised in using it in the provision of clinical care. This summary normalizes information from multiple sources, and as a consequence, information in this document may materially change the coding, format and clinical context of patient data. In addition, data may be omitted in some cases. CLINICAL DECISIONS SHOULD BE BASED ON THE PRIMARY CLINICAL RECORDS. [facility]. provides no warranty or guarantee of the accuracy or completeness of information in this document.
[2023-03-31 04:11] VITALS: BP 138/87; PULSE 93; RESP 18; TEMP 37.1; O2SAT 99
== END 2023-03-31 04:12 | disposition home or self-care (01) ==
PROVIDERS: Emergency Provider Emergency Medicine; PCP Internal Medicine; Visit Provider Emergency Medicine
DX: S93.401A Sprain of unspecified ligament of right ankle, initial encounter (principal); W10.9XXA Fall (on) (from) unspecified stairs and steps, initial encounter; F90.9 Attention-deficit hyperactivity disorder, unspecified type; Z79.899 Other long term (current) drug therapy; F17.290 Nicotine dependence, other tobacco product, uncomplicated
CPT/HCPCS: 73610; 73630; 99283